=== PATIENT | female | born 1965 | race Caucasian/White ===

== ENCOUNTER → 2016-07-29 | Outpatient (CLI) | payer BC ==
[~2016-07-29] MED LIST: ASPI81TA28 PO; BUPR-79 PO; BUSP-8 PO; BUSP15TA70 PO; ESCI1TAB18 PO; TRAZ1TAB52 PO; TRAZADONE PO
--- NOTE | 2016-07-29 08:42 | DIAGNOSTIC IMAGING REPORT ---
FUSION CT SINUSES W/O HISTORY: J32.9 Chronic sinusitis PLEASE PERFORM FUSION CT SCAN OF THE SINU TECHNIQUE: Multiaxial CT images the sinuses were performed reformatted in the coronal plane without the use of intravenous contrast. Fusion CT sinus protocol was also obtained. COMPARISON STUDY: None. FINDINGS: The frontal sinuses, residual ethmoid air cells, sphenoid sinuses, and mastoid air cells are essentially clear. Mild mucosal thickening within the bilateral maxillary sinuses, right greater than left. No fluid levels within the paranasal sinuses. The nasal septum is essentially midline. The lamina papyracea and orbital floors are intact. No evidence for carotid canal dehiscence. The orbits are unremarkable. Visualized brain parenchyma is within normal limits. Postoperative changes consistent with prior uncinectomies and ethmoidectomies. The cribriform plates and ethmoid roofs are symmetric. IMPRESSION: 1. Mild mucosal thickening within the bilateral maxillary antra. No fluid levels within the paranasal sinuses. 2. Postoperative changes as described above. Electronically signed by: Maicol Zhu M.D. 07/29/2016 8:41 AM Dictated Date/Time: 07/29/2016 8:36 AM
== END | disposition home or self-care (01) ==
LOC: C.CTS 08:18
DX: J32.9 Chronic sinusitis, unspecified (principal)

== ENCOUNTER → 2016-08-03 | Outpatient (CLI) | payer BC ==
--- NOTE | 2016-08-09 10:22 | CODING QUERY MEDICAL NECESSITY ---
SUPPORTING DIAGNOSIS NEEDED A supporting diagnosis is required for the test/procedure performed on this patient in order for us to be reimbursed by the patient's insurance. Please provide a supporting diagnosis for the following test/procedure listed below next to the test name along with your signature. *If there is no additional diagnosis for this patient that would support the following test/procedure please document that below next to the test/procedure. Test(s)/Procedure(s) that require a supporting diagnosis: * VITAMIN D, 25-HYDROXY DIAGNOSIS: Provider Signature: Date: Thank you Marisol Lovell [employer] Once completed, please kindly fax back to [phone] For questions please call [phone]
== END | disposition home or self-care (01) ==
LOC: C.LAB 16:22
PROVIDERS: ATTEND Psychiatry & Neurology Psychiatry
DX: F33.1 Major depressive disorder, recurrent, moderate (principal)

== ENCOUNTER → 2017-03-02 | Outpatient (CLI) | payer BC ==
[~2017-03-02] MED LIST changes: -BUSP-8 PO; -TRAZADONE PO
[2017-03-02 14:24] LABS: BASO % 0.5 %; BASO ABS # 0.03 K/uL (0-0.2); EOS % 3.1 %; EOS ABS # 0.18 K/uL (0-0.5); HEMATOCRIT 40.1 % (37-47); HEMOGLOBIN 13.4 g/dL (12.0-16.0); IG# 0.01 K/uL (0.00-0.02); LYMPH % 37.7 %; LYMPH ABS # 2.18 K/uL (1.2-3.4); MEAN CELL VOLUME 92.4 fL (80-100); MEAN CORPUSCULAR HEMOGLOBIN 30.9 pg (25-34); MEAN CORPUSCULAR HGB CONC 33.4 g/dl (32-36); MEAN PLATELET VOLUME 11.9 fL (7.4-10.4); MONO ABS # 0.46 K/uL (0.11-0.59); NEUT % 50.5 %; NEUT ABS # 2.92 K/uL (1.4-6.5); PLATELET COUNT 182 K/uL (130-400); RED CELL DISTRIBUTION WIDTH CV 13.1 % (11.5-14.5); RED CELL DISTRIBUTION WIDTH SD 44.1 fL (36.4-46.3); WHITE BLOOD COUNT 5.78 K/uL (4.8-10.8)
[2017-03-02 14:42] LABS: ALBUMIN 3.5 gm/dl (3.4-5.0); ALT/SGPT 25 U/L (12-78); BLOOD UREA NITROGEN 12 mg/dl (7-18); CALCIUM 8.6 mg/dl (8.5-10.1); CARBON DIOXIDE 25 mmol/L (21-32); CHOLESTEROL 138 mg/dl (0-200); CREATININE 0.96 mg/dl (0.60-1.20); GLUCOSE 114 mg/dl (70-99); POTASSIUM 3.7 mmol/L (3.5-5.1); SODIUM 142 mmol/L (136-145)
[2017-03-02 14:45] LABS: ALKALINE PHOSPHATASE 90 U/L (45-117); AST/SGOT 14 U/L (15-37); LDL CHOLESTEROL CALCULATED 68 mg/dl; TOTAL PROTEIN 6.6 gm/dl (6.4-8.2)
== END | disposition home or self-care (01) ==
LOC: C.LAB 13:47
PROVIDERS: ATTEND Nurse Practitioner Adult Health
DX: Z00.00 Encounter for general adult medical examination without abnormal findings (principal); I10 Essential (primary) hypertension

== ENCOUNTER 2019-07-18 07:26 | Inpatient (IN) ==
--- NOTE | 2019-07-18 07:35 | Emergency Department Note ---
History of Present Illness General Chief complaint: Abdominal Pain Stated complaint: ABDOMINAL PAIN Time Seen by Provider: 07/18/19 07:32 History of Present Illness Maximum Pain Intensity: 8 53-year-old female who presents to the emergency department with complaint of epigastric pain radiating straight through to the back. The patient reports that her symptoms started around 5:00 this morning while getting ready for work. The patient denied any discomfort last night. The patient reports that the pain is worsened with deep breathing. She denies any significant alleviating factors. She reports that the pain does extend upward slightly into the chest when laying on her back. She denies history of GERD. She denies any overall chest pain or shortness of breath. She denies any pain extending to the lower abdomen. The patient denies any prior history of GI issues. She does have a history of hypertension, but denies history of hypercholesterolemia. The patient reports that her father in his early 50s from an SD. She also reports family history of gallbladder issues. The patient denies any significant NSAIDs, alcohol or caffeine use. The patient rates her discomfort an 8 out of 10. Home Medications Home Medications Medication Instructions Recorded Confirmed Type buspirone 15 mg PO QAM 10/01/18 07/18/19 History escitalopram oxalate [Lexapro] 20 mg PO QAM 10/01/18 07/18/19 History bupropion HCl 150 mg 24 hr tablet, 150 mg PO QAM #90 tab 10/24/18 07/18/19 History extended release aspirin 81 mg tablet,delayed 81 mg PO DAILY #30 tab 06/11/19 07/18/19 Rx release Allergies Allergy/AdvReac Type Severity Reaction Status Date / Time No Known Drug Allergies Allergy Verified 07/18/19 08:09 Past Med/Surg History Medical History Allergic rhinitis Chronic sinusitis (Chronic) Depression Hepatomegaly Hypertension, benign essential, goal below 140/90 (Chronic) Obesity (Chronic) Osteopenia (Chronic) Varicose veins of both lower extremities (Chronic) Surgical History History of right salpingo-oophorectomy cystadenofibroma S/P knee surgery S/P sinus surgery S/P wisdom tooth extraction Family History Father Acute myocardial infarction Myocardial infarction Mother Hypertension FHx: deafness or hearing loss Sister Lung cancer Malignant neoplasm of kidney Unknown Cardiovascular disorder Grandmother Osteoporosis Grandfather Skin cancer Grandmother (Maternal) Breast cancer Denies family history of Colon cancer Ovarian cancer Prostate cancer Social History Visual Impairment: No Limitations Hearing Ability: Normal marital status: Single Current Living Situation: Family Current Living Situation Comment: lives with BF and her daughter and BF current occupational status: employed current occupation: [employer] Feels Safe at Home: Yes Smoking Status: Never smoker Do You Dip or Chew Tobacco: No ; Second Hand Exposure: No ; Hx Alcohol Use: Yes Alcohol Intake Frequency: Weekly Hx Substance Use: No Diet Comment: lactose intolerant, drinks almond milk during the past year weight has: decreased > 10 lbs Dental Care, Regularly: Yes Physical Activity Frequency: Does not Exercise Review of Systems 10 system review was performed and was negative except for pertinent positives and negatives as indicated in history of present illness Physical Exam Vital Signs Vital Signs - 24 hr 07/18/19 07:28 07/18/19 07:44 07/18/19 07:48 Temperature 36.4 C L Temperature Source Oral Pulse Rate 52 L 51 L Pulse Rate from SpO2 Sensor Respiratory Rate 20 16 Respiratory Effort / Characteristics Non-Labored Respiratory Depth Normal Blood Pressure 196/99 H Blood Pressure Mean 131 Pulse Oximetry 99 96 Oxygen Delivery Method Room Air Room Air Sepsis Recent Fever Within 48 Hours No Sepsis Action Taken by Nursing No Action Required 07/18/19 07:50 07/18/19 08:00 07/18/19 08:10 Temperature Temperature Source Pulse Rate 50 L 58 L 53 L Pulse Rate from SpO2 Sensor Respiratory Rate 16 15 13 Respiratory Effort / Characteristics Respiratory Depth Blood Pressure 146/99 H Blood Pressure Mean 114 Pulse Oximetry 100 Oxygen Delivery Method Sepsis Recent Fever Within 48 Hours Sepsis Action Taken by Nursing 07/18/19 08:20 07/18/19 10:14 07/18/19 10:16 Temperature Temperature Source Pulse Rate 53 L 52 L Pulse Rate from SpO2 Sensor Respiratory Rate 14 19 Respiratory Effort / Characteristics Respiratory Depth Blood Pressure 181/99 H 181/99 H Blood Pressure Mean 126 122 Pulse Oximetry 95 Oxygen Delivery Method Room Air Sepsis Recent Fever Within 48 Hours Sepsis Action Taken by Nursing 07/18/19 11:19 07/18/19 11:20 Temperature Temperature Source Pulse Rate Pulse Rate from SpO2 Sensor 54 L 52 L Respiratory Rate Respiratory Effort / Characteristics Respiratory Depth Blood Pressure 146/97 H Blood Pressure Mean 116 Pulse Oximetry 100 100 Oxygen Delivery Method Sepsis Recent Fever Within 48 Hours Sepsis Action Taken by Nursing CONSTITUTIONAL: Healthy and well nourished. Patient appears in moderate discomfort. HEENT: Normocephalic, atraumatic. Pupils equal, round and reactive. No scleral icterus or conjunctival injection/pallor. No tonsillar hypertrophy or posterior pharyngeal erythema. NECK: Full active range of motion without discomfort. No JVD or carotid bruits. LYMPHATICS: No cervical chain adenopathy. RESPIRATORY: Clear to auscultation bilaterally with no wheezing, crackles, rhonchi or stridor. CARDIOVASCULAR: Regular rate and rhythm with no murmurs, rubs or gallops. GASTROINTESTINAL: Bowel sounds present in all quadrants. Patient has notable epigastric and right upper quadrant tenderness to palpation with positive Whittaker sign. Negative CVA tenderness. No additional abdominal rigidity, guarding or rebound. MUSCULOSKELETAL: Full range of motion of all joints without discomfort. INTEGUMENTARY: No rash or other significant dermatologic conditions noted. HEMATOLOGIC: No ecchymosis or petechiae. PSYCHIATRIC: Positive affect. NEUROLOGIC: No focal neurologic deficits noted. Course Course Patient history and physical exam were performed. Nurse's notes were reviewed. Vital signs were reviewed, showing an elevated blood pressure of 196/99. The patient is mildly bradycardic at 52 bpm. She is afebrile with good O2 saturation on room air. IV access was established, and labs were drawn. The patient was hydrated with a liter normal saline, and administered IV morphine and Zofran. She was also administered a GI cocktail. This did not provide any significant relief. The patient was placed on a cardiac care unit nurse, and a 12-lead ECG shows a sinus bradycardia without any other concerning findings. Troponin and d-dimer were normal, and the patient had no other significant lab findings. CMP and lipase were normal. An abdomen obstruction series with a PA chest view was normal. Limited ultrasound of the abdomen shows evidence for a mobile gallstone with common bile duct dilatation at 9 mm. No gallbladder wall thickening or pericholecystic fluid is appreciated. I also reviewed cardiac monitoring data, showing no evidence for arrhythmias while in the emergency department. Findings were discussed with Dr. Delgado, ED attending physician, who recommended consulting general surgery to discuss treatment options. Case was discussed with Armando Blackwood PA-C, who also discussed the case with Dr. Mesa. They recommended laparoscopic cholecystectomy. The patient reported that she would rather think about it. Dr. Mesa return to the OR allow the patient time to consider her options. Prior to their second review, the patient reported worsening pain. I did place an order for additional IV morphine. Dr. Mesa did reevaluate the patient, and the patient elected observation at this time. Dr. Mesa indicated that he would order an MRCP at this point. Please see his dictation for further treatment and final disposition. The patient reported good pain control at the time of transfer of care, rating her discomfort a 2 out of 10. Administered Medications Morphine Sulfate (Morphine Sulfate) 4 mg IV Q30M PRN PRN Reason: Pain Stop: 08/01/19 11:40 Last Admin: 07/18/19 13:32 Dose: 4 mg Documented by: [id number] Discontinued Medications Al Hydrox/Mg Hydrox/Simethicone () Confirm Administered Dose 1 dose PO .STK-MED ONE Stop: 07/18/19 08:01 Last Admin: 07/18/19 08:03 Dose: 1 dose Documented by: [id number] Al Hydrox/Mg Hydrox/Simethicone 18 ml/ Lidocaine HCl 6 ml/ BARCODE IDENTIFIER 1 ea 0 ml PO ONE ONE Stop: 07/18/19 07:45 Last Admin: 07/18/19 08:04 Dose: Not Given Documented by: [id number] Sodium Chloride (Nss 1000ml) 1,000 mls @ 999 mls/hr IV .Q1H1M ONE Stop: 07/18/19 08:44 Last Infusion: 07/18/19 09:27 Dose: 0 mls/hr Documented by: [id number] Admin: 07/18/19 08:03 Dose: 999 mls/hr Documented by: [id number] Cefoxitin Sodium (Mefoxin) 2,000 mg in 60 mls @ 100 mls/hr IV NOW STA Stop: 07/18/19 13:55 Last Admin: 07/18/19 13:28 Dose: 100 mls/hr Documented by: [id number] Morphine Sulfate (Morphine Sulfate) 4 mg IV NOW STA Stop: 07/18/19 07:45 Last Admin: 07/18/19 08:04 Dose: 4 mg Documented by: [id number] Ondansetron HCl (Zofran) 4 mg IV NOW STA Stop: 07/18/19 07:45 Last Admin: 07/18/19 08:03 Dose: 4 mg Documented by: [id number] Medical Decision Making Medical Records Attestation: I reviewed the patient's medical records. Home Medications Current Medication List: was personally reviewed by me Laboratory Data Attestation: I reviewed the patient's lab results. Result diagrams: 07/18/19 07:50 07/18/19 07:50 Lab Results 07/18/19 07/18/19 07/18/19 Range/Units 07:50 07:50 07:50 WBC 5.81 (4.8-10.8) K/uL RBC 4.72 (4.2-5.4) M/uL Hgb 14.4 (12.0-16.0) g/dL Hct 44.0 (37-47) % MCV 93.2 (80-100) fL MCH 30.5 (25-34) pg MCHC 32.7 (32-36) g/dL RDW Std Deviation 45.8 (36.4-46.3) fL RDW Coeff of Sandi 13.3 (11.5-14.5) % Plt Count 192 (130-400) K/uL MPV 12.3 H (7.4-10.4) fL Immature Gran % (Auto) 0.2 % Neut % (Auto) 55.2 % Lymph % (Auto) 31.5 % [place] % (Auto) 10.0 % Eos % (Auto) 2.8 % Baso % (Auto) 0.3 % Immature Gran # (Auto) 0.01 (0.00-0.02) K/uL Neut # (Auto) 3.21 (1.4-6.5) K/uL Lymph # (Auto) 1.83 (1.2-3.4) K/uL [place] # (Auto) 0.58 (0.11-0.59) K/uL Eos # (Auto) 0.16 (0-0.5) K/uL Baso # (Auto) 0.02 (0-0.2) K/uL D-Dimer 500 (0-500) ug/L FEU Sodium 142 (136-145) mmol/L Potassium 3.9 (3.5-5.1) mmol/L Chloride 111 H (98-107) mmol/L Carbon Dioxide 27 (21-32) mmol/L Anion Gap 4.0 (3-11) BUN 14 (7-18) mg/dl Creatinine 0.96 (0.6-1.2) mg/dl Est Cr Clr Drug Dosing 79.4 ml/min Est GFR ( Amer) 77.2 Est GFR (Non-Af Amer) 66.6 BUN/Creatinine Ratio 14.8 (10-20) Glucose 92 (70-99) mg/dl Calcium 9.0 (8.5-10.1) mg/dl Total Bilirubin 0.5 (0.2-1) mg/dl AST 19 (15-37) U/L ALT 32 (12-78) U/L Alkaline Phosphatase 109 (45-117) U/L Troponin I < 0.015 (0-0.045) ng/ml Total Protein 6.9 (6.4-8.2) gm/dl Albumin 3.6 (3.4-5.0) gm/dl Globulin 3.3 (2.5-4.0) gm/dl Albumin/Globulin Ratio 1.1 (0.9-2) Lipase 207 (73-393) U/L Imaging Data Attestation: I personally reviewed and interpreted this imaging study as follows: My Impression: My interpretation of an abdomen obstruction series with a PA chest view does not show any obstructive pattern, abdominal free air, basilar lung consolidations, pneumothorax or cardiac prominence. Limited abdominal ultrasound shows evidence for a gallstone in, but bile duct dilatation. No gallbladder wall thickening or pericholecystic fluid is noted. Radiologist's Impression: CHEST AND ABDOMEN 2 VIEWS HISTORY: Epigastric pain COMPARISON: Chest 02/21/2015. FINDINGS: The lungs are clear. Cardiac silhouette is top normal in size. Mildly tortuous thoracic aorta. Old, healed left-sided rib fractures. No pneumoperitoneum. No pneumatosis. No dilated loops of bowel to suggest an obstruction. No renal or ureteral calculi. Small to moderate amount of well- formed stool within the colon. Punctate calcifications in the deep pelvis are nonspecific but favor phleboliths. IMPRESSION: No acute cardiopulmonary process. No evidence for bowel obstruction. ABDOMINAL ULTRASOUND, RIGHT UPPER QUADRANT HISTORY: Epigastric pain. COMPARISON: Abdomen and pelvis CT 02/21/2015. FINDINGS: Pancreas: The pancreas demonstrates a normal echotexture. Liver: Unremarkable. Gallbladder: No gallbladder wall thickening. There is a 1.2 cm mobile stone. The technologist reported positive sonographic Whittaker sign. CBD: Distended up to 9 mm. Right kidney: No hydronephrosis. Small parapelvic cysts within the upper pole. This measures 1.5 cm. IMPRESSION: 1. Equivocal findings for acute cholecystitis. There is no gallbladder wall thickening. However, there is a gallstone and a positive sonographic Whittaker sign. Consider follow-up nuclear medicine HIDA scan to exclude the possibility of developing acute cholecystitis. 2. Distended common bile duct at 9 mm. ECG Data Indication: + abdominal pain Rate (beats per minute): 51 Rhythm: + sinus bradycardia ECG Intervals/blocks: + Normal QRS, + Normal QT and + Normal CA ECG Irons: + Normal ECG ST segments: + Normal ST segments Blood Pressure Blood Pressure Findings: Elevated blood pressure MDM Narrative Cardiac monitoring: An order was placed for continuous cardiac monitoring. The monitor shows a rate of 51 bpm with a sinus bradycardic rhythm. conveyor monitor history was reviewed throughout the evaluation, and no dysrhythmias were noted. Patient presents to the emergency department with complaint of epigastric and right upper quadrant pain. Findings today are most consistent with biliary colic from a gallstone. Patient does also have a common bile duct dilatation, with choledocholithiasis also considered. Ultrasound and laboratory studies are not suggestive of acute cholecystitis at this time. Lab work also was not consistent with pancreatitis or hepatitis. The patient was unable to provide a urine sample to rule out UTI, although this is felt less likely. Examination is not consistent with appendicitis, pyelonephritis or diverticulitis. I do not suspect cardiopulmonary referred pain. Troponin and d-dimer are normal, therefore I do not suspect acute cardiac event or pulmonary embolus. Impression & Plan Biliary colic, Gallstone, Right upper quadrant abdominal pain Discharge Plan Visit Data *Final* Discharge Date/Time: 07/18/19 13:58 Chief Complaint: Abdominal Pain Stated Complaint: ABDOMINAL PAIN ED Provider: Vaughn Delgado ED Midlevel Provider: Poli Temple Discharge Problem: Biliary colic, Gallstone, Right upper quadrant abdominal pain Patient Disposition: Admitted As Inpatient Discharge Instructions Interventions: ED Discharge Assessment Last Done: 07/18/19 13:58 Discharge Problem: Gallstone Qualifiers: Cholecystitis presence: without cholecystitis Biliary obstruction: without biliary obstruction Qualified Code(s): K80.20 - Calculus of gallbladder without cholecystitis without obstruction
[2019-07-18] MEDS ORDERED: ONDANSETRON INJ 2 MG/ML 2 ML VIAL IV STA (07:44)
[2019-07-18] MEDS ORDERED: ALUMINUM/MAGNESIUM SUSP 18 ML, LIDOCAINE HCL VISCOUS 2% 6 ML, BARCODE IDENTIFIER 1 EA PO ONE (07:44)
[2019-07-18] MEDS ORDERED: MoRPHine SULFATE 4 MG/ML 1 ML CARP\\VIAL IV STA (07:44)
[2019-07-18] MEDS ORDERED: SODIUM CHLORIDE 0.9% 1000ML 1,000 ML IV ONE (07:44)
[2019-07-18] MEDS ORDERED: GI COCKTAIL ED USE PO ONE (08:00)
[2019-07-18 08:09] LABS: Basophils # (auto) 0.02 K/uL (0-0.2); Basophils % (auto) 0.3 %; Eosinophils # (auto) 0.16 K/uL (0-0.5); Eosinophils % (auto) 2.8 %; Hemoglobin 14.4 g/dL (12.0-16.0); Immature Granulocytes # (auto) 0.01 K/uL (0.00-0.02); Immature Granulocytes % (auto) 0.2 %; Lymphocytes # (auto) 1.83 K/uL (1.2-3.4); Lymphocytes % (auto) 31.5 %; Mean Corpuscular Hemoglobin 30.5 pg (25-34); Mean Corpuscular Hgb Conc 32.7 g/dL (32-36); Mean Corpuscular Volume 93.2 fL (80-100); Mean Platelet Volume 12.3 fL (7.4-10.4); Monocytes # (auto) 0.58 K/uL (0.11-0.59); Neutrophils # (auto) 3.21 K/uL (1.4-6.5); Neutrophils % (auto) 55.2 %; Platelet Count 192 K/uL (130-400); RDW Coefficient of Variation 13.3 % (11.5-14.5); RDW Standard Deviation 45.8 fL (36.4-46.3); Red Blood Count 4.72 M/uL (4.2-5.4); White Blood Count 5.81 K/uL (4.8-10.8)
[2019-07-18 08:18] LABS: D Dimer 500 ug/L FEU (0-500)
[2019-07-18 08:26] LABS: Alanine Aminotransferase 32 U/L (12-78); Albumin Level 3.6 gm/dl (3.4-5.0); Aspartate Aminotransferase 19 U/L (15-37); BUN Creatinine Ratio 14.8 (10-20); Blood Urea Nitrogen 14 mg/dl (7-18); Carbon Dioxide 27 mmol/L (21-32); Chloride 111 mmol/L (98-107); Creatinine Clr Calc Pharmacy 79.4 ml/min; Est GFR (African American) 77.2; Est GFR (Non-African American) 66.6; Glucose 92 mg/dl (70-99); Lipase 207 U/L (73-393); Potassium 3.9 mmol/L (3.5-5.1); Sodium 142 mmol/L (136-145)
[2019-07-18 08:31] LABS: Albumin Globulin Ratio 1.1 (0.9-2); Alkaline Phosphatase 109 U/L (45-117); Bilirubin,Total 0.5 mg/dl (0.2-1); Globulin 3.3 gm/dl (2.5-4.0); Total Protein 6.9 gm/dl (6.4-8.2); Troponin I < 0.015 ng/ml (0-0.045)
--- NOTE | 2019-07-18 08:47 | XRay Report ---
CHEST AND ABDOMEN 2 VIEWS HISTORY: Epigastric pain COMPARISON: Chest 02/21/2015. FINDINGS: The lungs are clear. Cardiac silhouette is top normal in size. Mildly tortuous thoracic aor ta. Old, healed left-sided rib fractures. No pneumoperitoneum. No pneumatosis. No dilated loops of cecilia wel to suggest an obstruction. No renal or ureteral calculi. Small to moderate amount of well-formed stool within the colon. Punctate calcifications in the deep pelvis are nonspecific but favor phleboli ths. IMPRESSION: No acute cardiopulmonary process. No evidence for bowel obstruction. ACT 112: Negative or not required by law. Electronically signed by: Maicol Zhu M.D. 07/18/2019 8:46 AM
--- NOTE | 2019-07-18 09:27 | Ultrasound Report ---
ABDOMINAL ULTRASOUND, RIGHT UPPER QUADRANT HISTORY: Epigastric pain. COMPARISON: Abdomen and pelvis CT 02/21/2015. FINDINGS: Pancreas: The pancreas demonstrates a normal echotexture. Liver: Unremarkable. Gallbladder: No gallbladder wall thickening. There is a 1.2 cm mobile stone. The technologist reporte d positive sonographic Whittaker sign. CBD: Distended up to 9 mm. Right kidney: No hydronephrosis. Small parapelvic cysts within the upper pole. This measures 1.5 cm. IMPRESSION: 1. Equivocal findings for acute cholecystitis. There is no gallbladder wall thickening. However, ther e is a gallstone and a positive sonographic Whittaker sign. Consider follow-up nuclear medicine HIDA sca n to exclude the possibility of developing acute cholecystitis. 2. Distended common bile duct at 9 mm. ACT 112: Negative or not required by law. Electronically signed by: Maicol Zhu M.D. 07/18/2019 9:25 AM
--- NOTE | 2019-07-18 10:30 | Surgery Consultation ---
Date of Consultation July 18, 2019 Assessment & Plan (1) Cholelithiasis: No evidence of acute cholecystitis. May have symptomatic cholelithiasis. Her symptoms improved with medication. We will observe for a short time in the ED and decide for discharge with close follow-up versus admission. Dr. Mesa-Rc saw the patient in the emergency room-she has a dilated gallbladder with a stone and a mildly dilated common bile duct I discussed with her laparoscopic cholecystectomy with cholangiogram but she is reluctant to undergo surgery as her mother and grandmother had loose bowel movements postoperatively from the same operation Her pain is returning and I told her she cannot go home-she will be admitted and MRCP ordered We will ask the medical team to see her as she does have hypertension and also the GI team I suspect at some point she will undergo laparoscopic cholecystectomy History of Present Illness History of Present Illness 53 y/o female with epigastric pain, nausea sudden onset this morning. Pain was increasing while getting ready for work and she came to ED. Some improvement after morphine and zofran. No previous abdominal pain or fatty food intolerance. Allergies Allergy/AdvReac Type Severity Reaction Status Date / Time No Known Drug Allergies Allergy Verified 07/18/19 08:09 Home Medications Home Medications Medication Instructions Recorded Confirmed Type buspirone 15 mg PO QAM 10/01/18 07/18/19 History escitalopram oxalate [Lexapro] 20 mg PO QAM 10/01/18 07/18/19 History bupropion HCl 150 mg 24 hr tablet, 150 mg PO QAM #90 tab 10/24/18 07/18/19 History extended release aspirin 81 mg tablet,delayed 81 mg PO DAILY #30 tab 06/11/19 07/18/19 Rx release Patient History Medical History Allergic rhinitis Chronic sinusitis (Chronic) Depression Hypertension, benign essential, goal below 140/90 (Chronic) Obesity (Chronic) Osteopenia (Chronic) Varicose veins of both lower extremities (Chronic) Surgical History History of right salpingo-oophorectomy cystadenofibroma S/P knee surgery S/P sinus surgery S/P wisdom tooth extraction Family History Father Acute myocardial infarction Myocardial infarction Mother Hypertension FHx: deafness or hearing loss Sister Lung cancer Malignant neoplasm of kidney Unknown Cardiovascular disorder Grandmother Osteoporosis Grandfather Skin cancer Grandmother (Maternal) Breast cancer Denies family history of Colon cancer Ovarian cancer Prostate cancer Social History Visual Impairment: No Limitations Hearing Ability: Normal marital status: Single Current Living Situation: Family Current Living Situation Comment: lives with BF and her daughter and BF current occupational status: employed current occupation: [employer] Feels Safe at Home: Yes Smoking Status: Never smoker Second Hand Exposure: No ; Hx Alcohol Use: Yes Alcohol Intake Frequency: Weekly Hx Substance Use: No Diet Comment: lactose intolerant, drinks almond milk during the past year weight has: decreased > 10 lbs Dental Care, Regularly: Yes Physical Activity Frequency: Does not Exercise Review of Systems Constitutional: no fever and no chills Gastrointestinal: + abdominal pain and + nausea Physical Exam Constitutional: WD/WN, vitals as above Respiratory: normal respiratory effort, lungs clear to auscultation Cardiovascular: RRR, no murmur, no edema Gastrointestinal (Abdomen): Inspection/Auscultation: abdomen not distended Percussion/Palpation: + abdomen tender (epigastric) and abdomen soft Results & Data Vital Signs (Past 12 Hours) Vital Signs Temp Pulse Resp BP Pulse Ox 07/18/19 10:14 52 L 19 181/99 H 95 07/18/19 07:44 96 07/18/19 07:28 36.4 C L 52 L 20 196/99 H 99 PG Care Time/CCT Total # of Minutes Spent Total Time Spent with Patient: Total time spent is greater than 50% in coordination of care (as documented) at patient's floor/unit and/or counseling patient: Coding Level of Care Code 52029 Office/OBS Consult Lvl 3 Diagnoses Cholelithiasis K80.20
[2019-07-18] MEDS ORDERED: MoRPHine SULFATE 4 MG/ML 1 ML CARP\\VIAL IV PRN ×2 (11:41→17:37)
--- NOTE | 2019-07-18 11:47 | Hospitalist Consultation ---
Date of Consultation July 18, 2019 Assessment & Plan (1) Acute calculous cholecystitis: This patient is a 53-year-old female with history of obesity, chronic sinusitis and rhinitis,, borderline hypertension, and depression, who presents to the ER with acute calculus cholecystitis. Blood pressures are likely elevated secondary to pain in the setting of borderline hypertension previously. LFTs are normal but may be due to early course of illness. -Admitted to the general surgery service -Plans to go to the OR today for cholecystectomy-we will keep n.p.o., received 1 L of IV fluids -She will continue on IV maintenance fluids with LR at 100 mL's per hour --Start IV Mefoxin 2 g x 1 now as per surgery recommendation -Pain control with morphine, IV Zofran as needed for nausea This patient is easily able to achieve at least 4 METS by going up and down a flight of stairs without any chest pain or shortness of breath. She has a normal ECG and no renal disease or any other concerning cardiopulmonary history. She is at average cardiovascular perioperative risk to undergo this interm iate risk procedure and should proceed with the surgery if she chooses. (2) Biliary colic: As above (3) Hypertension, benign essential, goal below 140/90: Blood pressure elevated here likely secondary to pain into the 180s over 90s systolic, however has improved with IV morphine down to the 140s over 90s Patient reports she frequently is in the 140s over 90s when she checks her blood pressure at work. She does have trace pitting edema lower extremities and history of varicose veins She is completely asymptomatic from her blood pressure at this time-no headache or chest pain or neurological deficits, no shortness of breath -Could benefit from starting chlorthalidone or HCTZ 25 mg once daily after she r ecovers from her surgery -In the meantime, would add hydralazine 10 mg IV every 8 hours as needed systolic blood pressure greater than 180 -We will follow blood pressures (4) Chronic sinusitis: Chronic issue, follows with hvac specialist No current acute issues (5) Obesity: BMI 35.9 She is working on changing her diet and weight loss (6) Osteopenia: Noted in the chart Not on calcium or vitamin D that I can see -Follow-up with PCP (7) Depression: Stable -Continue home bupropion, buspirone, and Lexapro once able to take p.o. (8) Allergic rhinitis: As above, not currently on any medications for this (9) Hepatomegaly: Noted hepatomegaly on MRCP Could be due to fatty liver -Follow-up with PCP as an outpatient Recommended weight loss (10) DVT prophylaxis: SCDs and would recommend Lovenox SQ postoperatively at surgeon's discretion Disposition-hospitalist service will follow along with this consultation History of Present Illness Reason for Consultation: Biliary colic, elevated BP Requesting Physician: Dr. Jonathan Mesa Attending Physician: Dr. Jonathan Mesa History of Present Illness This pt is a 53 yo female with a h/o depression/anxiety, allergic rhinitis and chronic sinusitis, osteopenia, and HTN who presents to the ER with with epigastric pain radiating to the right shoulder, nausea sudden onset this morning. Pain was increasing while getting ready for work and she came to ED. Some improvement after morphine and zofran, but the pain has since returned when I saw her. No previous abdominal pain or fatty food intolerance, but her mother and her aunt have had gallbladder issues. She recently did the "whole 30 challenge" which included no processed sugars or grains or dairy for the last 30 days. She denies any fevers. No chest pains or shortness of breath. She normally can go up and down a flight of stairs without any difficulty and is fairly active. No previous history of cardiac or pulmonary issues. She is a non-smoker. AAS showed moderate stool in the colon but no obstruction. Abd US showed cholelithiasis, distended GB, CBD dilated at 9mm, but equivocal for cholecystitis. She was admitted to the surgical service for further workup with MRCP and possible cholecystectomy with intraoperative cholangiogram. MRCP came back as I was seeing her which showed evidence concerning for acute cholecystitis, stone in the gallbladder neck and a stone possibly in the cystic duct, but no choledocholithiasis. The patient is now agreeable to having a cholecystectomy Hospitalist service consulted for elevated BPs and medical management. Allergies Allergy/AdvReac Type Severity Reaction Status Date / Time No Known Drug Allergies Allergy Verified 07/18/19 08:09 Home Medications Home Medications Medication Instructions Recorded Confirmed Type buspirone 15 mg PO QAM 10/01/18 07/18/19 History escitalopram oxalate [Lexapro] 20 mg PO QAM 10/01/18 07/18/19 History bupropion HCl 150 mg 24 hr tablet, 150 mg PO QAM #90 tab 10/24/18 07/18/19 History extended release aspirin 81 mg tablet,delayed 81 mg PO DAILY #30 tab 06/11/19 07/18/19 Rx release Patient History Medical History Allergic rhinitis Chronic sinusitis (Chronic) Depression Hypertension, benign essential, goal below 140/90 (Chronic) Obesity (Chronic) Osteopenia (Chronic) Varicose veins of both lower extremities (Chronic) Surgical History History of right salpingo-oophorectomy cystadenofibroma S/P knee surgery S/P sinus surgery S/P wisdom tooth extraction Family History Father Acute myocardial infarction Myocardial infarction Mother Hypertension FHx: deafness or hearing loss Sister Lung cancer Malignant neoplasm of kidney Unknown Cardiovascular disorder Grandmother Osteoporosis Grandfather Skin cancer Grandmother (Maternal) Breast cancer Denies family history of Colon cancer Ovarian cancer Prostate cancer Social History Visual Impairment: No Limitations Hearing Ability: Normal marital status: Single Current Living Situation: Family Current Living Situation Comment: lives with BF and her daughter and BF current occupational status: employed current occupation: [employer] Officer - [employer] Feels Safe at Home: Yes Smoking Status: Never smoker Second Hand Exposure: No ; Hx Alcohol Use: Yes Alcohol Intake Frequency: Weekly Hx Substance Use: No Diet Comment: lactose intolerant, drinks almond milk during the past year weight has: decreased > 10 lbs Dental Care, Regularly: Yes Physical Activity Frequency: Does not Exercise Review of Systems Review of Systems: All systems reviewed & are unremarkable except as noted in HPI & below Physical Exam Constitutional: WD/WN, vitals as above + obese Eyes: PERRL, conjunctivae normal, anicteric sclerae ENMT: external ear and nose normal, oropharynx normal Neck: trachea midline, no thyromegaly Respiratory: normal respiratory effort, lungs clear to auscultation Cardiovascular: RRR, no murmur, no edema Chest (Breasts): Chest: normal inspection of chest Gastrointestinal (Abdomen): Inspection/Auscultation: abdomen normal to inspection and normal bowel sounds; abdomen not distended Percussion/Palpation: + abdomen tender (In the epigastric and right upper mary drant region without guarding or rebound) and abdomen soft; no guarding and abdomen not rigid Musculoskeletal: Extremities: extremities normal to inspection; no cyanosis and no clubbing Skin: no rashes, warm and dry Neurologic: moves all extremities and awake; no focal motor deficits Psychiatric: A+Ox3, euthymic affect Lymphatic: no lymphedema Results & Data Results & Data ([facility]) Vital Signs (Past 12 Hours) Vital Signs Temp Pulse Resp BP Pulse Ox 07/18/19 10:16 181/99 H 07/18/19 10:14 52 L 19 181/99 H 95 07/18/19 08:20 53 L 14 07/18/19 08:10 53 L 13 146/99 H 100 07/18/19 08:00 58 L 15 07/18/19 07:50 50 L 16 07/18/19 07:48 51 L 16 07/18/19 07:44 96 07/18/19 07:28 36.4 C L 52 L 20 196/99 H 99 Laboratory Results 07/18/19 07/18/19 07/18/19 Range/Units 07:50 07:50 07:50 WBC 5.81 (4.8-10.8) K/uL RBC 4.72 (4.2-5.4) M/uL Hgb 14.4 (12.0-16.0) g/dL Hct 44.0 (37-47) % MCV 93.2 (80-100) fL MCH 30.5 (25-34) pg MCHC 32.7 (32-36) g/dL RDW Std Deviation 45.8 (36.4-46.3) fL RDW Coeff of Sandi 13.3 (11.5-14.5) % Plt Count 192 (130-400) K/uL MPV 12.3 H (7.4-10.4) fL Immature Gran % (Auto) 0.2 % Neut % (Auto) 55.2 % Lymph % (Auto) 31.5 % [place] % (Auto) 10.0 % Eos % (Auto) 2.8 % Baso % (Auto) 0.3 % Immature Gran # (Auto) 0.01 (0.00-0.02) K/uL Neut # (Auto) 3.21 (1.4-6.5) K/uL Lymph # (Auto) 1.83 (1.2-3.4) K/uL [place] # (Auto) 0.58 (0.11-0.59) K/uL Eos # (Auto) 0.16 (0-0.5) K/uL Baso # (Auto) 0.02 (0-0.2) K/uL D-Dimer 500 (0-500) ug/L FEU Sodium 142 (136-145) mmol/L Potassium 3.9 (3.5-5.1) mmol/L Chloride 111 H (98-107) mmol/L Carbon Dioxide 27 (21-32) mmol/L Anion Gap 4.0 (3-11) BUN 14 (7-18) mg/dl Creatinine 0.96 (0.6-1.2) mg/dl Est Cr Clr Drug Dosing 79.4 ml/min Est GFR ( Amer) 77.2 Est GFR (Non-Af Amer) 66.6 BUN/Creatinine Ratio 14.8 (10-20) Glucose 92 (70-99) mg/dl Calcium 9.0 (8.5-10.1) mg/dl Total Bilirubin 0.5 (0.2-1) mg/dl AST 19 (15-37) U/L ALT 32 (12-78) U/L Alkaline Phosphatase 109 (45-117) U/L Troponin I < 0.015 (0-0.045) ng/ml Total Protein 6.9 (6.4-8.2) gm/dl Albumin 3.6 (3.4-5.0) gm/dl Globulin 3.3 (2.5-4.0) gm/dl Albumin/Globulin Ratio 1.1 (0.9-2) Lipase 207 (73-393) U/L Diagnostic Findings Abdominal ultrasound, acute abdominal series, and MRCP all reviewed and as per HPI ECG Additional Comments: ECG with sinus bradycardia, no ischemic changes PG Care Time/CCT Total # of Minutes Spent Total Time Spent with Patient: Total time spent is greater than 50% in coordination of care (as documented) at patient's floor/unit and/or counseling patient: Coding Level of Care Code 63180 Inpt Consult Level 3 Diagnoses Acute calculous cholecystitis K80.00 Biliary colic K80.50 Hypertension, benign essential, goal below 140/90 I10 Chronic sinusitis J32.9 Obesity E66.9 Osteopenia M85.80 Depression F32.9 Allergic rhinitis J30.9 Hepatomegaly R16.0 DVT prophylaxis Z29.9
[2019-07-18] MEDS ORDERED: HydrALAZINE HCL 20 MG/ML VIAL IV PRN (11:59)
--- NOTE | 2019-07-18 13:14 | Magnetic Resonance Report ---
MRCP CLINICAL HISTORY: Nausea. Cholelithiasis. Right upper quadrant abdominal pain. Comparison study: Abdominal ultrasound dated 07/18/2019. Abdominal CT dated 02/21/2015. TECHNIQUE: Abdominal MRCP is performed utilizing various T2-weighted sequences in the axial and coron al planes. 3-D reformats are created and assessed. IV contrast was not administered for this examinat ion. FINDINGS: The gallbladder is distended, with a gallstone identified in the region of the gallbladder neck. Ques tion a small obstructing stone in the cystic duct seen on image #135 of the high-resolution axial ser ies. The gallbladder wall appears mildly thickened and edematous, and there is trace pericholecystic stranding and fluid. Findings are highly concerning for acute cholecystitis. There is no intrahepatic biliary ductal dilatation. There is prominence of the common bile duct which measures up to 7 mm in diameter. There are no intraluminal filling defects to indicate choledocholithiasis. The pancreatic d uct is normal in caliber. The unenhanced liver is enlarged measuring 19.7 cm in length. The unenhanced spleen, pancreas, adrena l glands, and kidneys are grossly unremarkable. There is no bowel obstruction. There is no abdominal ascites. The abdominal aorta is normal in caliber. No pleural effusion is identified. The heart is top normal in size and without pericardial effusion. The visualized bony structures demonstrate normal marrow signal intensity. IMPRESSION: 1. Cholelithiasis with evidence of acute cholecystitis. 2. Suspect a small obstructing calculus within the cystic duct. 3. There is no intrahepatic biliary ductal dilatation. No stones are seen within the common bile duct . 4. Hepatomegaly. 5. Additional findings as above. Electronically signed by: Adrian Marrufo M.D. 07/18/2019 1:13 PM
[2019-07-18] MEDS ORDERED: cefOXitin 2,000 MG/60 ML BAG IV STA (13:20)
[2019-07-18 13:53] LABS: Appearance Urine Clear (Clear); Bacteria Urine Automated Negative (Negative); Bilirubin Urine Negative (Negative); Blood Urine Trace (Negative); Cast Urine Automated 0 /lpf (0-5); Color Urine Yellow; Epithelial Cell Urine Auto 0-5 /lpf (0-5); Glucose Urine UA Negative (Negative); Ketones Urine Negative (Negative); Leukocyte Esterase Urine Negative (Negative); Nitrite Urine Negative (Negative); Protein Urine Negative (Negative); RBC Urine Automated 0-4 /hpf (0-4); Specific Gravity Urine 1.011 (1.000-1.030); Urobilinogen Urine Negative (Negative); WBC Urine Automated 0 /hpf (0-5); pH Urine 8.5 (4.5-7.5)
[2019-07-18 13:59] LABS: Pregnancy Test, Urine Negative (Negative)
[2019-07-18] MEDS ORDERED: ONDANSETRON INJ 2 MG/ML 2 ML VIAL IV PRN ×2 (14:20→17:37)
[2019-07-18] MEDS ORDERED: ePHEDrine sulfate 50 MG/ML AMP IV PRN (14:20)
[2019-07-18] MEDS ORDERED: HYDROmorphone INJ 1 MG/ML SYRINGE IV PRN (14:20)
[2019-07-18] MEDS ORDERED: ATROPINE SULFATE 0.1 MG/ML 10ML SYR IV PRN (14:20)
[2019-07-18] MEDS ORDERED: fentaNYL citrate 100 MCG/2 ML VIAL IV PRN (14:20)
--- NOTE | 2019-07-18 14:23 | Anesthesiology Consultation ---
Date of Service July 18, 2019 Assessment & Plan (1) Encounter for pre-operative examination: Chart Review Chart Review: Acceptable Risk for Surgery and Patient NOT seen in Pre Admission Testing Consults Requested none History Surgery Operation Date: 07/18/19 10:10 Proposed Procedures p Laparoscopic Cholecystectomy with Cholangiogram - Jonathan Mesa MD, FACS Height/Weight Height: 5 ft 6 in Weight: 100.9 kg Allergies Allergy/AdvReac Type Severity Reaction Status Date / Time No Known Drug Allergies Allergy Verified 07/18/19 08:09 Medications Home Medications Medication Instructions Recorded Confirmed Last Taken buspirone 15 mg PO QAM 10/01/18 07/18/19 07/17/19 escitalopram oxalate [Lexapro] 20 mg PO QAM 10/01/18 07/18/19 07/17/19 bupropion HCl 150 mg 24 hr tablet, 150 mg PO QAM #90 tab 10/24/18 07/18/19 07/17/19 extended release aspirin 81 mg tablet,delayed 81 mg PO DAILY #30 tab 06/11/19 07/18/19 07/17/19 release Active Medications Generic Name Dose Route Start Last Admin Trade Name Freq PRN Reason Stop Dose Admin Morphine Sulfate 4 mg 07/18/19 11:41 07/18/19 13:32 Morphine Sulfate IV 08/01/19 11:40 4 mg Q30M PRN Administration Pain NPO Date Last Intake of Fluids: 07/18/19 Time Last Intake of Fluids: 06:00 Date Last Intake of Solids: 07/18/19 Time Last Intake of Solids: 06:00 Past Medical History Medical History Allergic rhinitis Chronic sinusitis (Chronic) Depression Hepatomegaly Hypertension, benign essential, goal below 140/90 (Chronic) Obesity (Chronic) Osteopenia (Chronic) Varicose veins of both lower extremities (Chronic) Exercise / Class Metabolic Activity III < 4 Walking/Shop/Light housework Past Family History Family History Father Acute myocardial infarction Myocardial infarction Mother Hypertension FHx: deafness or hearing loss Sister Lung cancer Malignant neoplasm of kidney Unknown Cardiovascular disorder Grandmother Osteoporosis Grandfather Skin cancer Grandmother (Maternal) Breast cancer Denies family history of Colon cancer Ovarian cancer Prostate cancer Past Surgical History Surgical History History of right salpingo-oophorectomy cystadenofibroma S/P knee surgery S/P sinus surgery S/P wisdom tooth extraction Past Anesthesia History No Hx of Anesthesia Complications and No Family Hx of Anesthesia Complications History of PONV No Hx of PONV and No Hx of Motion Sickness Social History Smoking Status: Never smoker Do You Dip or Chew Tobacco: No Hx Alcohol Use: Yes Hx Substance Use: No Physical Exam Vital Signs Last Vital Signs Temp 36.6 C 07/18/19 14:17 Pulse 53 L 07/18/19 14:17 Resp 16 07/18/19 14:17 BP 138/94 07/18/19 14:17 Pulse Ox 97 07/18/19 14:17 Testing Laboratory Results 07/18/19 07:50 07/18/19 07:50 Urine Color Yellow 07/18/19 13:30 Urine Appearance Clear (Clear) 07/18/19 13:30 Urine pH 8.5 (4.5-7.5) H 07/18/19 13:30 Ur Specific [place] 1.011 (1.000-1.030) 07/18/19 13:30 Urine Protein Negative (Negative) 07/18/19 13:30 Urine Glucose (UA) Negative (Negative) 07/18/19 13:30 Urine Ketones Negative (Negative) 07/18/19 13:30 Urine Nitrite Negative (Negative) 07/18/19 13:30 Ur Leukocyte Esterase Negative (Negative) 07/18/19 13:30 Urine WBC (Auto) 0 /hpf (0-5) 07/18/19 13:30 Urine RBC (Auto) 0-4 /hpf (0-4) 07/18/19 13:30 U Hyaline Cast (Auto) 0 /lpf (0-5) 07/18/19 13:30 U Epithel Cells (Auto) 0-5 /lpf (0-5) 07/18/19 13:30 Urine Bacteria (Auto) Negative (Negative) 07/18/19 13:30 Urine Test Negative (Negative) 07/18/19 13:30 07/18/19 13:30 Urine Test Negative
[2019-07-18] MEDS ORDERED: BUPIVACAINE 0.5 % 5 MG/1 ML MPF 30ML VIAL ONE (14:24)
[2019-07-18] MEDS ORDERED: CONRAY 60% 50 ML VIAL ONE (14:24)
[2019-07-18] MEDS ORDERED: PROPOFOL IV EMULSION 10 MG/ML 20 ML VIAL IV ONE (14:33)
[2019-07-18] MEDS ORDERED: ONDANSETRON INJ 2 MG/ML 2 ML VIAL ONE (14:33)
[2019-07-18] MEDS ORDERED: fentaNYL citrate 100 MCG/2 ML VIAL ONE (14:33)
[2019-07-18] MEDS ORDERED: LIDOCAINE HCL 2% 2 ML VIAL/AMP(20MG/ML) INFIL ONE (14:33)
[2019-07-18] MEDS ORDERED: GLYCOPYRROLATE 0.2 MG/ML VIAL ONE ×2 (14:33→15:41)
[2019-07-18] MEDS ORDERED: DEXAMETHASONE SOD INJ 4 MG/ML VIAL ONE (14:33)
[2019-07-18] MEDS ORDERED: ROCURONIUM BROMIDE 10 MG/ML 5 ML VIAL ONE (14:33)
[2019-07-18] MEDS ORDERED: NEOSTIGMINE METHYLSULFATE 5 MG/5 ML SYR ONE (14:33)
[2019-07-18] MEDS ORDERED: MIDAZOLAM HCL 1 MG/ML 2ML VIAL ONE (14:33)
[2019-07-18] MEDS ORDERED: ACETAMINOPHEN 1000 MG/100 ML IV IV ONE (14:42)
[2019-07-18] MEDS ORDERED: ESMOLOL HCL INJ 10 MG/ML 10ML VIAL IV ONE (16:06)
[2019-07-18] MEDS ORDERED: ACETAMINOPHEN 1,000 MG/100 ML VIAL IV STA (16:27)
--- NOTE | 2019-07-18 16:27 | Fluoroscopy Report ---
INTRAOPERATIVE CHOLANGIOGRAM HISTORY: Post cholecystectomy. FLUOROSCOPY TIME: 25 seconds. 3 fluoroscopic spot images of the right upper quadrant.. FINDINGS: Fluoroscopy was provided for an intraoperative cholangiogram status post cholecystectomy. C ontrast was injected through the cystic duct remnant. The common bile duct is normal in course and ca liber. There are no filling defects seen within the common bile duct to suggest a retained stone. Co ntrast does not extend into the small bowel. There is no intrahepatic bile duct dilatation. IMPRESSION: Fluoroscopy provided for an intraoperative cholangiogram status post cholecystectomy. No filling defects within the common bile duct. However, contrast was not seen within the small bowel. T herefore a punctate stone at the ampulla cannot be excluded. ACT 112: Negative or not required by law. Electronically signed by: Maicol Zhu M.D. 07/18/2019 4:25 PM
--- NOTE | 2019-07-18 16:27 | Post Operative Brief Note ---
PG Immediate Post Op with CF Date of Surgery July 18, 2019 Pre & Post Diagnosis Operation Date: 07/18/19 10:10 Pre-Op Diagnosis: Cholelithiasis. Post-Op Diagnosis: Cholelithiasis. possible choledocholithiasis acute cholecystitis I identified the patient and participated in the time-out.: Yes Procedure Operation Date: 07/18/19 10:10 Actual Procedures p Laparoscopic Cholecystectomy with Cholangiogram - Jonathan Mesa MD, FACS Surgeon Jonathan Mesa MD, FACS Gastroenterology Technician Lore Alonso Estimated Blood Loss 10 Findings Consistent with Post-Op Diagnosis Specimens Specimen Description: A. Gallbladder and contents. Drains Karson-Velasquez Drain
--- NOTE | 2019-07-18 17:11 | Anesthesiology Progress Note ---
Date of Service July 18, 2019 Anesthesia Post Procedure Vital Signs Vital Signs: Temp Pulse Pulse Resp BP BP Pulse Ox 07/18/19 14:17 36.6 C 53 L 16 138/94 97 07/18/19 13:27 158/97 H 95 07/18/19 11:20 100 07/18/19 11:19 146/97 H 100 07/18/19 10:16 181/99 H 07/18/19 10:14 52 L 19 181/99 H 95 07/18/19 08:20 53 L 14 07/18/19 08:10 53 L 13 146/99 H 100 07/18/19 08:00 58 L 15 07/18/19 07:50 50 L 16 07/18/19 07:48 51 L 16 07/18/19 07:44 96 07/18/19 07:28 36.4 C L 52 L 20 196/99 H 99 Pain Intensity Right Abdomen: Pain Intensity: 3 Transfer of Care Handoff Completed per policy Notes Mental Status: alert / awake / arousable and participated in evaluation Patient Amnestic to Procedure: Yes Nausea / Vomiting: adequately controlled Pain: adequately controlled Airway Patency, RR, SpO2: stable & adequate BP & HR: stable & adequate Hydration State: stable & adequate Anesthetic Complications: no major complications apparent and Pt Satisfied with anesthetic care
[2019-07-18] MEDS ORDERED: MoRPHine SULFATE 2 MG/ML CARP IV PRN (17:37)
[2019-07-18] MEDS ORDERED: PROMETHAZINE HCL 12.5 MG in SODIUM CHLORIDE 0.9% 50 ML IV PRN (17:37)
[2019-07-18] MEDS ORDERED: LACTATED RINGER'S 1,000 ML IV SCH (17:37)
[2019-07-18] MEDS ORDERED: HYDROCODONE/ACETAMOPHEN 5/325MG TAB PO PRN ×2 (17:37)
[2019-07-18] MEDS ORDERED: ACETAMINOPHEN 325 MG TAB PO PRN (17:37)
[2019-07-18] MEDS ORDERED: PROMETHAZINE HCL 25 MG in SODIUM CHLORIDE 0.9% 50 ML IV PRN (17:37)
[2019-07-18] MEDS: SODIUM CHLORIDE 0.9% 1000ML 1,000 ML IV SCH (18:30)
--- NOTE | 2019-07-18 19:27 | Operative Report (OR) ---
DATE OF OPERATION: 07/18/2019 NAME OF OPERATION: Laparoscopic cholecystectomy with cholangiogram. PREOPERATIVE DIAGNOSIS: Acute cholecystitis. POSTOPERATIVE DIAGNOSES: Acute cholecystitis with possible choledocholithiasis. STAFF SURGEON: Jonathan Mesa MD. DETECTIVE PRIVATE EYE: Razia Alonso PA-C. ANESTHESIA: General. DESCRIPTION OF PROCEDURE: The patient was brought in the operating room and placed on the operating table in supine position. Her abdomen was prepped and draped in usual fashion. Pneumatic stockings were placed. My blood bank assistant helped with prepping, draping, removal of the gallbladder and closure of the wound. 0.5% plain Marcaine was used to anesthetize all incisions. Incision was made above the umbilicus, carrying dissection down through significant adipose tissue to the fascia, placing a Veress needle producing pneumoperitoneum. An 11 mm port was placed at this level and under visualization, three 5 mm ports were placed, 1 cephalad and 2 laterally. The patient was placed in reverse Trendelenburg position. The gallbladder was severely distended and thickened with some serous ascites consistent with acute inflammation. The gallbladder was aspirated of bile. Dissection was carried out to meredith hepatis, identifying the cystic duct. It was clipped next to the gallbladder, then partially opened, rapid return of bile under pressure was noted. The catheter was easily passed down into the common bile duct; cholangiography was performed. There were no defects in the majority of the common bile duct, except the contrast did not flow into the duodenum. At this point, the cystic duct was clipped and transected. The cystic artery identified, clipped and transected and the gallbladder dissected away from the liver bed. There was significant edema in the posterior wall. Gallbladder was placed in an Endobag. After appropriate irrigation and hemostasis, a #15 round Karson-Velasquez drain was placed through the right lateral 5 mm port site, secured using 3-0 nylon suture, placed into the subhepatic space. The gallbladder was then removed using a 5 mm scope through the umbilical site. The umbilical fascia closed using interrupted 0 PDS suture, subcutaneous tissue reapproximated using 2-0 plain suture and then the skin reapproximated using 5-0 Prolene suture. Drain was placed to suction bulb. The patient was transferred to recovery room in stable condition. I attest to the content of the Intraoperative Record and any orders documented therein. Any exception s are noted below.
[2019-07-19 05:47] LABS: Basophils # (auto) 0.01 K/uL (0-0.2); Basophils % (auto) 0.2 %; Hematocrit (blood only) 42.1 % (37-47); Hemoglobin 13.6 g/dL (12.0-16.0); Lymphocytes # (auto) 0.56 K/uL (1.2-3.4); Lymphocytes % (auto) 9.4 %; Mean Corpuscular Hemoglobin 30.3 pg (25-34); Mean Corpuscular Hgb Conc 32.3 g/dL (32-36); Mean Corpuscular Volume 93.8 fL (80-100); Mean Platelet Volume 12.4 fL (7.4-10.4); Monocytes # (auto) 0.28 K/uL (0.11-0.59); Monocytes % (auto) 4.7 %; Neutrophils # (auto) 5.12 K/uL (1.4-6.5); Neutrophils % (auto) 85.7 %; Platelet Count 204 K/uL (130-400); RDW Coefficient of Variation 13.2 % (11.5-14.5); RDW Standard Deviation 45.5 fL (36.4-46.3); Red Blood Count 4.49 M/uL (4.2-5.4); White Blood Count 5.97 K/uL (4.8-10.8)
--- NOTE | 2019-07-19 06:22 | Surgery Progress Note ---
Date of Service July 19, 2019 Assessment & Plan (1) Status post laparoscopic cholecystectomy: During lap sterling patient had no flow into the duodenum on her cholangiogram Also had significant bilious output from her cystic duct indicating high pressure He did have some pain during the night but is doing better We will check her a.m. labs Have discussed her situation with the GI team Leave drain in place Depending on progress and GI plan patient will need at least 1-2 more days in hospital Continue antibiotics Results & Data Vital Signs (Past 12 Hours) Vital Signs Temp Pulse Pulse Resp BP BP Pulse Ox 07/19/19 05:54 95 07/19/19 03:10 36.8 C 54 L 16 113/67 94 07/18/19 23:32 93 07/18/19 23:31 36.8 C 56 L 14 110/70 89 L 07/18/19 19:44 36.8 C 60 16 124/75 92 07/18/19 18:42 36.8 C 58 L 16 120/79 90 PG Care Time/CCT Total # of Minutes Spent Total Time Spent with Patient: Total time spent is greater than 50% in coordination of care (as documented) at patient's floor/unit and/or counseling patient: Coding Level of Care Code None Diagnoses Status post laparoscopic cholecystectomy Z90.49
[2019-07-19 06:40] LABS: Albumin Level 3.3 gm/dl (3.4-5.0); Bilirubin Direct 0.2 mg/dl (0-0.2); Bilirubin,Total 0.5 mg/dl (0.2-1); Calcium 8.3 mg/dl (8.5-10.1); Creatinine Clr Calc Pharmacy 89.7 ml/min; Est GFR (African American) 89.4; Est GFR (Non-African American) 77.1; Globulin 3.3 gm/dl (2.5-4.0); Phosphorus 3.6 mg/dl (2.5-4.9); Potassium 4.4 mmol/L (3.5-5.1); Total Protein 6.6 gm/dl (6.4-8.2)
[2019-07-19] MEDS: ESCITALOPRAM OXALATE 20 MG TAB PO SCH (08:00)
[2019-07-19] MEDS: BusPIRone 15 MG TAB PO SCH (08:00)
[2019-07-19] MEDS: BuPROPion XL 150 MG TABCR PO SCH (08:00)
[2019-07-19] MEDS: SODIUM CHLORIDE 0.9% 1000ML 1,000 ML IV SCH ×3 (08:05→19:46)
--- NOTE | 2019-07-19 10:39 | Hospitalist Progress Note ---
Date of Service July 19, 2019 Assessment & Plan (1) Acute calculous cholecystitis: This patient is a 53-year-old female with history of obesity, chronic sinusitis and rhinitis,, borderline hypertension, and depression, who presents to the ER with acute calculus cholecystitis. Blood pressures are likely elevated secondary to pain in the setting of borderline hypertension previously. LFTs are normal but may be due to early course of illness. * Per primary service * POD #1 S/P lab sterling with Dr. Mesa on 07/17. EBL 10mL. Pre-op h/h 14.4/44.0. Patient without flow into duodenum on cholangiogram in addition to significant bilious output from cystic duct. AST elevated at 54 Keep NPO GI consulted --> plan for ERCP this afternoon * PT/OT/DVT prophylaxis per primary service * H/h stable at 13.6/42.1 -- likely combination of dilution from IVF as well as acute blood loss * Continue IV mefoxin per surgery * Pain control with morphine, zofran for nausea * CBC in AM (2) Biliary colic: * As above (3) Hypertension, benign essential, goal below 140/90: * Blood pressure elevated here on admission likely secondary to pain into the 180s over 90s systolic, however has improved with IV morphine * Patient reports she frequently is in the 140s over 90s when she checks her blood pressure at work. * She does have trace pitting edema lower extremities and history of varicose veins * She is completely asymptomatic from her blood pressure at this time-no headache or chest pain or neurological deficits, no shortness of breath * Could benefit from starting chlorthalidone or HCTZ 25 mg once daily after she recovers from her surgery * In the meantime, would add hydralazine 10 mg IV every 8 hours as needed systolic blood pressure greater than 180 * BP stable at 126/84 (4) Chronic sinusitis: * Chronic issue, follows with fisheries specialist * No current acute issues (5) Obesity: * BMI 35.9 * She is working on changing her diet and weight loss (6) Osteopenia: * Noted in the chart * Not on calcium or vitamin D that I can see * Follow-up with PCP (7) Depression: * Stable * Continue home bupropion, buspirone, and Lexapro when not NPO (8) Allergic rhinitis: * As above, not currently on any medications for this (9) Hepatomegaly: * Noted hepatomegaly on MRCP --> undergoing ERCP this afternoon. AST elevated at 54 * Could be due to fatty liver * Follow-up with PCP as an outpatient * Recommended weight loss (10) DVT prophylaxis: * SCDs * would recommend Lovenox SQ postoperatively at surgeon's discretion Thank you for allowing hospitalist service to participate in the care of Ms. Ace. Hospitalist service will follow along. Admission and Anticipated Discharge Date Admission Date: July 18, 2019 Subjective Patient states her abdominal pain is decreased, but still present in her epigastric region. Did have episode of increase pain last evening. No bowel movement since admission, but she states she deals with constipation on a regular basis. Continues to be NPO for ERCP with Dr. Lowery this afternoon. Denies fevers, chills, chest pain, palpitations, shortness of breath, cough, nausea, vomiting at this time. Questions/concerns addressed. Review of Systems Review of Systems: All systems reviewed & are unremarkable except as noted in HPI & below Physical Exam Constitutional: WD/WN, vitals as above + obese; no acute distress Eyes: PERRL, conjunctivae normal, anicteric sclerae ENMT: dry mm Neck: trachea midline, no thyromegaly Respiratory: normal respiratory effort, lungs clear to auscultation Cardiovascular: Rate/Rhythm: regular rate and regular rhythm Heart Sounds: normal S1 and normal S2; no gallop, no murmur and no cardiac rub Extremities: + edema (trace b/l LE) Gastrointestinal (Abdomen): Inspection/Auscultation: normal bowel sounds; abdomen not distended Percussion/Palpation: + abdomen tender (minimally tender epigastric region) and abdomen soft; no guarding and abdomen not rigid TANA drain in place with seosaninous drainage. surgical incisions to abdomen c/d/i no evidence of erythema or drainage. Musculoskeletal: no cyanosis or clubbing, extremities motor strength 5/5 Skin: no rashes, warm and dry Neurologic: patellar DTR's 2+ bilat, sensation intact Psychiatric: A+Ox3, euthymic affect Lymphatic: no cervical or axillary lymphadenopathy Results & Data Results & Data ([facility]) Vital Signs (Past 12 Hours) Vital Signs Temp Pulse Resp BP Pulse Ox 07/19/19 07:45 36.4 C L 50 L 22 126/84 92 06/04/20 05:54 95 07/19/19 03:10 36.8 C 54 L 16 113/67 94 07/18/19 23:32 93 07/18/19 23:31 36.8 C 56 L 14 110/70 89 L Laboratory Results 07/19/19 07/19/19 07/18/19 Range/Units 05:32 05:32 13:30 WBC 5.97 (4.8-10.8) K/uL RBC 4.49 (4.2-5.4) M/uL Hgb 13.6 (12.0-16.0) g/dL Hct 42.1 (37-47) % MCV 93.8 (80-100) fL MCH 30.3 (25-34) pg MCHC 32.3 (32-36) g/dL RDW Std Deviation 45.5 (36.4-46.3) fL RDW Coeff of Sandi 13.2 (11.5-14.5) % Plt Count 204 (130-400) K/uL MPV 12.4 H (7.4-10.4) fL Immature Gran % (Auto) 0.0 % Neut % (Auto) 85.7 % Lymph % (Auto) 9.4 % [place] % (Auto) 4.7 % Eos % (Auto) 0.0 % Baso % (Auto) 0.2 % Immature Gran # (Auto) 0.00 (0.00-0.02) K/uL Neut # (Auto) 5.12 (1.4-6.5) K/uL Lymph # (Auto) 0.56 L (1.2-3.4) K/uL [place] # (Auto) 0.28 (0.11-0.59) K/uL Eos # (Auto) 0.00 (0-0.5) K/uL Baso # (Auto) 0.01 (0-0.2) K/uL Sodium 142 (136-145) mmol/L Potassium 4.4 (3.5-5.1) mmol/L Chloride 111 H (98-107) mmol/L Carbon Dioxide 26 (21-32) mmol/L Anion Gap 5.0 (3-11) BUN 8 D (7-18) mg/dl Creatinine 0.85 (0.6-1.2) mg/dl Est Cr Clr Drug Dosing 89.7 ml/min Est GFR ( Amer) 89.4 Est GFR (Non-Af Amer) 77.1 BUN/Creatinine Ratio 9.0 L (10-20) Glucose 126 H (70-99) mg/dl Calcium 8.3 L (8.5-10.1) mg/dl Phosphorus 3.6 (2.5-4.9) mg/dl Total Bilirubin 0.5 (0.2-1) mg/dl Direct Bilirubin 0.2 (0-0.2) mg/dl AST 54 H (15-37) U/L ALT 74 (12-78) U/L Alkaline Phosphatase 100 (45-117) U/L Total Protein 6.6 (6.4-8.2) gm/dl Albumin 3.3 L (3.4-5.0) gm/dl Globulin 3.3 (2.5-4.0) gm/dl Albumin/Globulin Ratio 1.0 (0.9-2) Urine Color Urine Appearance (Clear) Urine pH (4.5-7.5) Ur Specific [place] (1.000-1.030) Urine Protein (Negative) Urine Glucose (UA) (Negative) Urine Ketones (Negative) Urine Blood (Negative) Urine Nitrite (Negative) Urine Bilirubin (Negative) Urine Urobilinogen (Negative) Ur Leukocyte Esterase (Negative) Urine WBC (Auto) (0-5) /hpf Urine RBC (Auto) (0-4) /hpf U Hyaline Cast (Auto) (0-5) /lpf U Epithel Cells (Auto) (0-5) /lpf Urine Bacteria (Auto) (Negative) Urine Test Negative (Negative) 07/18/19 Range/Units 13:30 WBC (4.8-10.8) K/uL RBC (4.2-5.4) M/uL Hgb (12.0-16.0) g/dL Hct (37-47) % MCV (80-100) fL MCH (25-34) pg MCHC (32-36) g/dL RDW Std Deviation (36.4-46.3) fL RDW Coeff of Sandi (11.5-14.5) % Plt Count (130-400) K/uL MPV (7.4-10.4) fL Immature Gran % (Auto) % Neut % (Auto) % Lymph % (Auto) % [place] % (Auto) % Eos % (Auto) % Baso % (Auto) % Immature Gran # (Auto) (0.00-0.02) K/uL Neut # (Auto) (1.4-6.5) K/uL Lymph # (Auto) (1.2-3.4) K/uL [place] # (Auto) (0.11-0.59) K/uL Eos # (Auto) (0-0.5) K/uL Baso # (Auto) (0-0.2) K/uL Sodium (136-145) mmol/L Potassium (3.5-5.1) mmol/L Chloride (98-107) mmol/L Carbon Dioxide (21-32) mmol/L Anion Gap (3-11) BUN (7-18) mg/dl Creatinine (0.6-1.2) mg/dl Est Cr Clr Drug Dosing ml/min Est GFR ( Amer) Est GFR (Non-Af Amer) BUN/Creatinine Ratio (10-20) Glucose (70-99) mg/dl Calcium (8.5-10.1) mg/dl Phosphorus (2.5-4.9) mg/dl Total Bilirubin (0.2-1) mg/dl Direct Bilirubin (0-0.2) mg/dl AST (15-37) U/L ALT (12-78) U/L Alkaline Phosphatase (45-117) U/L Total Protein (6.4-8.2) gm/dl Albumin (3.4-5.0) gm/dl Globulin (2.5-4.0) gm/dl Albumin/Globulin Ratio (0.9-2) Urine Color Yellow Urine Appearance Clear (Clear) Urine pH 8.5 H (4.5-7.5) Ur Specific [place] 1.011 (1.000-1.030) Urine Protein Negative (Negative) Urine Glucose (UA) Negative (Negative) Urine Ketones Negative (Negative) Urine Blood Trace H (Negative) Urine Nitrite Negative (Negative) Urine Bilirubin Negative (Negative) Urine Urobilinogen Negative (Negative) Ur Leukocyte Esterase Negative (Negative) Urine WBC (Auto) 0 (0-5) /hpf Urine RBC (Auto) 0-4 (0-4) /hpf U Hyaline Cast (Auto) 0 (0-5) /lpf U Epithel Cells (Auto) 0-5 (0-5) /lpf Urine Bacteria (Auto) Negative (Negative) Urine Test (Negative) PG Care Time/CCT Total # of Minutes Spent Total Time Spent with Patient: Total time spent is greater than 50% in coordination of care (as documented) at patient's floor/unit and/or counseling patient: Coding Level of Care Code 31226 Subseq Hosp Care Lvl 2 Diagnoses Acute calculous cholecystitis K80.00 Biliary colic K80.50 Hypertension, benign essential, goal below 140/90 I10 Chronic sinusitis J32.9 Obesity E66.9 Osteopenia M85.80 Depression F32.9 Allergic rhinitis J30.9 Hepatomegaly R16.0 DVT prophylaxis Z29.9
--- NOTE | 2019-07-19 11:20 | Gastrointestinal Consultation ---
Date of Consultation July 19, 2019 Assessment & Plan (1) Dilated cbd, acquired: Pt is a 53 y/o female who underwent lap sterling yesterday for symptomatic cholecystitis, and CBD found to be mildly prominent on MRCP; intra-op cholangiogram indicated no filling defect in the CBD however contrast was not seen in the small bowel, concerning for distal CBD obstruction (stone/sludge/mass/stenosis?). This AM has a slight bump in AST; continues to have epigastric discomfort. Abd is soft, she's HD stable. - Keep NPO - Continue IVF - Continue empiric ABX - ERCP today. I spoke with pt's Vaughn via phone at pt's request to review work-up and planned procedure - Continue analgesia PRN - Continue antiemetics PRN - Further rec's to follow procedure Thank you for allowing us to participate in the care of this patient. Please call with any acute changes, questions or concerns. Please see addendum below with additional recommendation from my supervising physician. (2) Epigastric pain: Supervising Physician Co-Signing Physician Notes I performed a history and physical examination of the patient today, including specifically on physical exam - soft abdomen. I have discussed the patient's management with the advanced practitioner. Please refer to the nurse practitioner's note for the documented findings and plan of care. ERCP today in view of dilated CBD and abnormal IOC. History of Present Illness Reason for Consultation: possible distal CBD obstr Attending Physician: Jonathan Mesa MD, [facility] History of Present Illness Pt is a 53 y/o female with PMhx depression, obesity, and others below admitted yesterday after presenting with epigastric abd discomfort, found to have symptomatic cholelithiasis. LFTs, tbili, CBC, renal fxn were WNL, MRCP with CBD 7 mm, suspect small obstructing calculus in the cystic duct. She underwent lap sterling yesterday afternoon. Intra-op cholangiogram revealed no filling defects within the common bile duct. However, contrast was not seen within the small bowel. Therefore a punctate stone at the ampulla cannot be excluded. This AM reporting still having epigastric discomfort, feels like "a bowling ball" is in her abd; no nausea; pain is improved but not relieved with IV pain meds; rate it at a 2/10. She's a febrile, HD stable. She remains on IVF, empiric ABX. AST bumped to 54, rest of LFTs, CBC renal fxn WNL. Had some clear liquids around 8:30; no solid food. Denies vomiting, hematemesis, melena, hematochezia, gas/bloat, fever, jaundice, dark urine, paez stool. MRCP 07/18/19: 1. Cholelithiasis with evidence of acute cholecystitis. 2. Suspect a small obstructing calculus within the cystic duct. 3. There is no intrahepatic biliary ductal dilatation. No stones are seen within the common bile duct. 4. Hepatomegaly. Allergies Allergy/AdvReac Type Severity Reaction Status Date / Time No Known Drug Allergies Allergy Verified 07/18/19 08:09 Home Medications Home Medications Medication Instructions Recorded Confirmed Type buspirone 15 mg PO QAM 10/01/18 07/18/19 History escitalopram oxalate [Lexapro] 20 mg PO QAM 10/01/18 07/18/19 History bupropion HCl 150 mg 24 hr tablet, 150 mg PO QAM #90 tab 10/24/18 07/18/19 History extended release aspirin 81 mg tablet,delayed 81 mg PO DAILY #30 tab 06/11/19 07/18/19 Rx release Patient History Medical History Allergic rhinitis Chronic sinusitis (Chronic) Depression Hepatomegaly Hypertension, benign essential, goal below 140/90 (Chronic) Obesity (Chronic) Osteopenia (Chronic) Varicose veins of both lower extremities (Chronic) Surgical History History of right salpingo-oophorectomy cystadenofibroma S/P knee surgery S/P sinus surgery S/P wisdom tooth extraction Family History Father Acute myocardial infarction Myocardial infarction Mother Hypertension FHx: deafness or hearing loss Sister Lung cancer Malignant neoplasm of kidney Unknown Cardiovascular disorder Grandmother Osteoporosis Grandfather Skin cancer Grandmother (Maternal) Breast cancer Denies family history of Colon cancer Ovarian cancer Prostate cancer Social History Preferred Language: Welsh Communication Ability: Effective Visual Impairment: No Limitations Hearing Ability: Normal Beliefs That Will Affect Care: None marital status: Single Current Living Situation: Significant Other Current Living Situation Comment: lives with BF and her daughter and BF current occupational status: employed current occupation: Clerk [employer] Feels Safe at Home: Yes Safety Concerns: Feels Safe At This Time Smoking Status: Former smoker Do You Dip or Chew Tobacco: No ; Second Hand Exposure: No ; Hx Alcohol Use: Yes Alcohol type: wine and hard liquor Alcohol Intake Frequency: Weekly Hx Substance Use: No Diet Comment: lactose intolerant, drinks almond milk during the past year weight has: decreased > 10 lbs Dental Care, Regularly: Yes Physical Activity Frequency: Does not Exercise Review of Systems Constitutional: no fever, no chills and no weight loss Eyes: no icterus Respiratory: no cough and no dyspnea Cardiovascular: no chest pain, no dyspnea and no edema Gastrointestinal: as per Subjective / HPI Genitourinary: no dysuria Integumentary: no rashes, jaundice Physical Exam Constitutional: WD/WN, vitals as above no acute distress Eyes: + anicteric sclerae Respiratory: normal respiratory effort, lungs clear to auscultation Cardiovascular: RRR, no murmur, no edema Gastrointestinal (Abdomen): Inspection/Auscultation: abdomen normal to inspection; abdomen not distended Percussion/Palpation: abdomen soft mildly tender to epigastrium; nondistended, no rebound, guarding. TANA drain in place; with scant serosaguinous drainage; no bile; surgical incisions with bandages C/D/I Skin: no rashes, warm and dry Psychiatric: A+Ox3, euthymic affect Results & Data ([facility]) Vital Signs (Past 12 Hours) Vital Signs Temp Pulse Resp BP Pulse Ox 07/19/19 07:45 36.4 C L 50 L 22 126/84 92 07/19/19 05:54 95 07/19/19 03:10 36.8 C 54 L 16 113/67 94 07/18/19 23:32 93 07/18/19 23:31 36.8 C 56 L 14 110/70 89 L Laboratory Results 07/19/19 07/19/19 07/18/19 Range/Units 05:32 05:32 13:30 WBC 5.97 (4.8-10.8) K/uL RBC 4.49 (4.2-5.4) M/uL Hgb 13.6 (12.0-16.0) g/dL Hct 42.1 (37-47) % MCV 93.8 (80-100) fL MCH 30.3 (25-34) pg MCHC 32.3 (32-36) g/dL RDW Std Deviation 45.5 (36.4-46.3) fL RDW Coeff of Sandi 13.2 (11.5-14.5) % Plt Count 204 (130-400) K/uL MPV 12.4 H (7.4-10.4) fL Immature Gran % (Auto) 0.0 % Neut % (Auto) 85.7 % Lymph % (Auto) 9.4 % [place] % (Auto) 4.7 % Eos % (Auto) 0.0 % Baso % (Auto) 0.2 % Immature Gran # (Auto) 0.00 (0.00-0.02) K/uL Neut # (Auto) 5.12 (1.4-6.5) K/uL Lymph # (Auto) 0.56 L (1.2-3.4) K/uL [place] # (Auto) 0.28 (0.11-0.59) K/uL Eos # (Auto) 0.00 (0-0.5) K/uL Baso # (Auto) 0.01 (0-0.2) K/uL Sodium 142 (136-145) mmol/L Potassium 4.4 (3.5-5.1) mmol/L Chloride 111 H (98-107) mmol/L Carbon Dioxide 26 (21-32) mmol/L Anion Gap 5.0 (3-11) BUN 8 D (7-18) mg/dl Creatinine 0.85 (0.6-1.2) mg/dl Est Cr Clr Drug Dosing 89.7 ml/min Est GFR ( Amer) 89.4 Est GFR (Non-Af Amer) 77.1 BUN/Creatinine Ratio 9.0 L (10-20) Glucose 126 H (70-99) mg/dl Calcium 8.3 L (8.5-10.1) mg/dl Phosphorus 3.6 (2.5-4.9) mg/dl Total Bilirubin 0.5 (0.2-1) mg/dl Direct Bilirubin 0.2 (0-0.2) mg/dl AST 54 H (15-37) U/L ALT 74 (12-78) U/L Alkaline Phosphatase 100 (45-117) U/L Total Protein 6.6 (6.4-8.2) gm/dl Albumin 3.3 L (3.4-5.0) gm/dl Globulin 3.3 (2.5-4.0) gm/dl Albumin/Globulin Ratio 1.0 (0.9-2) Urine Color Urine Appearance (Clear) Urine pH (4.5-7.5) Ur Specific [place] (1.000-1.030) Urine Protein (Negative) Urine Glucose (UA) (Negative) Urine Ketones (Negative) Urine Blood (Negative) Urine Nitrite (Negative) Urine Bilirubin (Negative) Urine Urobilinogen (Negative) Ur Leukocyte Esterase (Negative) Urine WBC (Auto) (0-5) /hpf Urine RBC (Auto) (0-4) /hpf U Hyaline Cast (Auto) (0-5) /lpf U Epithel Cells (Auto) (0-5) /lpf Urine Bacteria (Auto) (Negative) Urine Test Negative (Negative) 07/18/19 Range/Units 13:30 WBC (4.8-10.8) K/uL RBC (4.2-5.4) M/uL Hgb (12.0-16.0) g/dL Hct (37-47) % MCV (80-100) fL MCH (25-34) pg MCHC (32-36) g/dL RDW Std Deviation (36.4-46.3) fL RDW Coeff of Sandi (11.5-14.5) % Plt Count (130-400) K/uL MPV (7.4-10.4) fL Immature Gran % (Auto) % Neut % (Auto) % Lymph % (Auto) % [place] % (Auto) % Eos % (Auto) % Baso % (Auto) % Immature Gran # (Auto) (0.00-0.02) K/uL Neut # (Auto) (1.4-6.5) K/uL Lymph # (Auto) (1.2-3.4) K/uL [place] # (Auto) (0.11-0.59) K/uL Eos # (Auto) (0-0.5) K/uL Baso # (Auto) (0-0.2) K/uL Sodium (136-145) mmol/L Potassium (3.5-5.1) mmol/L Chloride (98-107) mmol/L Carbon Dioxide (21-32) mmol/L Anion Gap (3-11) BUN (7-18) mg/dl Creatinine (0.6-1.2) mg/dl Est Cr Clr Drug Dosing ml/min Est GFR ( Amer) Est GFR (Non-Af Amer) BUN/Creatinine Ratio (10-20) Glucose (70-99) mg/dl Calcium (8.5-10.1) mg/dl Phosphorus (2.5-4.9) mg/dl Total Bilirubin (0.2-1) mg/dl Direct Bilirubin (0-0.2) mg/dl AST (15-37) U/L ALT (12-78) U/L Alkaline Phosphatase (45-117) U/L Total Protein (6.4-8.2) gm/dl Albumin (3.4-5.0) gm/dl Globulin (2.5-4.0) gm/dl Albumin/Globulin Ratio (0.9-2) Urine Color Yellow Urine Appearance Clear (Clear) Urine pH 8.5 H (4.5-7.5) Ur Specific [place] 1.011 (1.000-1.030) Urine Protein Negative (Negative) Urine Glucose (UA) Negative (Negative) Urine Ketones Negative (Negative) Urine Blood Trace H (Negative) Urine Nitrite Negative (Negative) Urine Bilirubin Negative (Negative) Urine Urobilinogen Negative (Negative) Ur Leukocyte Esterase Negative (Negative) Urine WBC (Auto) 0 (0-5) /hpf Urine RBC (Auto) 0-4 (0-4) /hpf U Hyaline Cast (Auto) 0 (0-5) /lpf U Epithel Cells (Auto) 0-5 (0-5) /lpf Urine Bacteria (Auto) Negative (Negative) Urine Test (Negative)
--- NOTE | 2019-07-19 12:30 | Electrocardiogram Report ---
Test Reason : Blood Pressure : / mmHG Vent. Rate : 051 BPM Atrial Rate : 051 BPM P-R Int : 150 ms QRS Dur : 086 ms QT Int : 438 ms P-R-T Axes : 010 017 007 degrees QTc Int : 403 ms Sinus bradycardia Otherwise normal ECG When compared with ECG of 21-FEB-2015 22:24, No significant change Confirmed by Hector Salcido [id number]) on 07/19/2019 12:30:47 PM Referred By: REFERRED SELF Confirmed By:Hector Salcido
--- NOTE | 2019-07-19 12:31 | History & Physical Bridge Note ---
Date of Service July 19, 2019 History & Physical Bridge Note I have examined the patient, reviewed the History & Physical and in the interval since the performance of the History & Physical I have noted the following changes of clinical significance: no changes noted
[2019-07-19] MEDS ORDERED: fentaNYL citrate 100 MCG/2 ML VIAL ONE ×2 (14:27→14:51)
[2019-07-19] MEDS ORDERED: INDOMETHACIN 50 MG SUPP PR ONE (14:30)
--- NOTE | 2019-07-19 14:36 | Anesthesiology Consultation ---
Date of Service July 19, 2019 Assessment & Plan Chart Review Chart Review: Acceptable Risk for Surgery Consults Requested none History Surgery Operation Date: 07/18/19 10:10 Proposed Procedures p Laparoscopic Cholecystectomy with Cholangiogram - Jonathan Mesa MD, FACS Operation Date: 07/19/19 13:00 Proposed Procedures p Endoscopic Retrograde Cholangiopancreatogram - Jenny Lowery MD Height/Weight Height: 5 ft 6 in Weight: 100.9 kg Allergies Allergy/AdvReac Type Severity Reaction Status Date / Time No Known Drug Allergies Allergy Verified 07/18/19 08:09 Medications Home Medications Medication Instructions Recorded Confirmed Last Taken buspirone 15 mg PO QAM 10/01/18 07/18/19 07/17/19 escitalopram oxalate [Lexapro] 20 mg PO QAM 10/01/18 07/18/19 07/17/19 bupropion HCl 150 mg 24 hr tablet, 150 mg PO QAM #90 tab 10/24/18 07/18/19 07/17/19 extended release aspirin 81 mg tablet,delayed 81 mg PO DAILY #30 tab 06/11/19 07/18/19 07/17/19 release Active Medications Generic Name Dose Route Start Last Admin Trade Name Freq PRN Reason Stop Dose Admin Hydrocodone Bitart/Acetaminophen 1 tab 07/18/19 17:37 07/18/19 21:34 [place] 5/325 PO 08/01/19 17:36 1 tab Q4HWA PRN Administration Pain Hydrocodone Bitart/Acetaminophen 2 tab 07/18/19 17:37 07/19/19 08:00 [place] 5/325 PO 08/01/19 17:36 2 tab Q4HWA PRN Administration Pain Bupropion HCl 150 mg 07/19/19 09:00 07/19/19 08:00 Wellbutrin-Xl PO 08/18/19 08:59 150 mg QAM ANTONIO Administration Buspirone HCl 15 mg 07/19/19 09:00 07/19/19 08:00 Buspar PO 08/18/19 08:59 15 mg QAM ANTONIO Administration Escitalopram Oxalate 20 mg 07/19/19 09:00 07/19/19 08:00 Lexapro Tab PO 08/18/19 08:59 20 mg QAM ANTONIO Administration Cefoxitin Sodium 1,000 mg/ 60 mls @ 100 mls/hr 07/18/19 19:00 07/19/19 12:58 Dextrose IV 07/28/19 18:59 Infused Q6H ANTONIO Infusion Sodium Chloride 1,000 mls @ 80 mls/hr 07/18/19 17:37 07/19/19 08:05 Nss 1000ml IV 08/17/19 17:36 80 mls/hr .[id number] ANTONIO Administration Morphine Sulfate 4 mg 07/18/19 11:41 07/18/19 13:32 Morphine Sulfate IV 08/01/19 11:40 4 mg Q30M PRN Administration Pain Morphine Sulfate 2 mg 07/18/19 17:37 07/18/19 18:27 Morphine Sulfate IV 08/01/19 17:36 2 mg Q1H PRN Administration MILD Pain (Scale 1,2,3) NPO Date Last Intake of Fluids: 07/19/19 Time Last Intake of Fluids: 08:30 Last Intake of Fluids Comment: clear liquid breakfast Date Last Intake of Solids: 07/18/19 Time Last Intake of Solids: 06:45 Past Medical History Medical History Allergic rhinitis Chronic sinusitis (Chronic) Depression Hepatomegaly Hypertension, benign essential, goal below 140/90 (Chronic) Obesity (Chronic) Osteopenia (Chronic) Varicose veins of both lower extremities (Chronic) Exercise / Class Metabolic Activity II 4-5 Yardwork/Stairs/Walk up hill Past Family History Family History Father Acute myocardial infarction Myocardial infarction Mother Hypertension FHx: deafness or hearing loss Sister Lung cancer Malignant neoplasm of kidney Unknown Cardiovascular disorder Grandmother Osteoporosis Grandfather Skin cancer Grandmother (Maternal) Breast cancer Denies family history of Colon cancer Ovarian cancer Prostate cancer Past Surgical History Surgical History History of right salpingo-oophorectomy cystadenofibroma S/P knee surgery S/P sinus surgery S/P wisdom tooth extraction Past Anesthesia History No Hx of Anesthesia Complications and No Family Hx of Anesthesia Complications History of PONV No Hx of PONV and No Hx of Motion Sickness Social History Smoking Status: Former smoker Do You Dip or Chew Tobacco: No Hx Alcohol Use: Yes Alcohol type: wine and hard liquor alcohol intake frequency: holidays/special occasions only Hx Substance Use: No Physical Exam Vital Signs Last Vital Signs Temp 36.6 C 07/19/19 13:39 Pulse 50 L 07/19/19 13:39 Resp 16 07/19/19 13:39 BP 132/88 07/19/19 13:39 Pulse Ox 96 07/19/19 13:39 Testing Laboratory Results 07/19/19 05:32 07/19/19 05:32 Urine Color Yellow 07/18/19 13:30 Urine Appearance Clear (Clear) 07/18/19 13:30 Urine pH 8.5 (4.5-7.5) H 07/18/19 13:30 Ur Specific [place] 1.011 (1.000-1.030) 07/18/19 13:30 Urine Protein Negative (Negative) 07/18/19 13:30 Urine Glucose (UA) Negative (Negative) 07/18/19 13:30 Urine Ketones Negative (Negative) 07/18/19 13:30 Urine Nitrite Negative (Negative) 07/18/19 13:30 Ur Leukocyte Esterase Negative (Negative) 07/18/19 13:30 Urine WBC (Auto) 0 /hpf (0-5) 07/18/19 13:30 Urine RBC (Auto) 0-4 /hpf (0-4) 07/18/19 13:30 U Hyaline Cast (Auto) 0 /lpf (0-5) 07/18/19 13:30 U Epithel Cells (Auto) 0-5 /lpf (0-5) 07/18/19 13:30 Urine Bacteria (Auto) Negative (Negative) 07/18/19 13:30 Urine Test Negative (Negative) 07/18/19 13:30 07/18/19 13:30 Urine Test Negative
[2019-07-19] MEDS ORDERED: ePHEDrine sulfate 50 MG/ML AMP IV PRN (14:37)
[2019-07-19] MEDS ORDERED: fentaNYL citrate 100 MCG/2 ML VIAL IV PRN (14:37)
[2019-07-19] MEDS ORDERED: ONDANSETRON INJ 2 MG/ML 2 ML VIAL IV PRN (14:37)
[2019-07-19] MEDS ORDERED: HYDROmorphone INJ 2 MG/ML SYR/VIAL IV PRN (14:37)
[2019-07-19] MEDS ORDERED: PROMETHAZINE HCL 12.5 MG in SODIUM CHLORIDE 0.9% 50 ML IV PRN (14:37)
[2019-07-19] MEDS ORDERED: ATROPINE SULFATE 0.1 MG/ML 10ML SYR IV PRN (14:37)
[2019-07-19] MEDS ORDERED: DEXAMETHASONE SOD INJ 4 MG/ML VIAL IV PRN (14:37)
[2019-07-19] MEDS ORDERED: METOCLOPRAMIDE HCL INJ 5 MG/ML 2 ML VIAL IV PRN (14:37)
[2019-07-19] MEDS ORDERED: MIDAZOLAM HCL 1 MG/ML 2ML VIAL ONE (14:45)
--- NOTE | 2019-07-19 15:10 | Operative Report ---
Post Operative Report Pre & Post Diagnosis Operation Date: 07/18/19 10:10 Pre-Op Diagnosis: Cholelithiasis. Post-Op Diagnosis: Cholelithiasis. Operation Date: 07/19/19 13:00 Pre-Op Diagnosis: Dilated common bile duct. Post-Op Diagnosis: Dilated common bile duct. I identified the patient and participated in the time-out.: Yes Procedure Operation Date: 07/18/19 10:10 Actual Procedures p Laparoscopic Cholecystectomy with Cholangiogram - Jonathan Mesa MD, FACS Operation Date: 07/19/19 13:00 Actual Procedures p Endoscopic Retrograde Cholangiopancreatogram - Jenny Lowery MD Surgeon Jenny Lowery MD Real Estate Appraiser Supervisor Lore Alonso Estimated Blood Loss 10 Findings See Below (CBD stone removed) Specimens ERCP Description of Procedure ERCP I attest to the content of the Intraoperative Record and any orders documented therein. Any exceptions are noted below.
--- NOTE | 2019-07-19 15:21 | GI REPORT ---
Patient Name: Emma Ace Procedure Date: 07/19/2019 2:35 PM Date of : 1965 Admit Type: Inpatient Age: 53 Gender: Female Attending MD: Jenny Lowery MD Procedure: ERCP Providers: Jenny Lowery MD Referring MD: Jonathan Mesa Indications: Abnormal intraoperative cholangiogram, Biliary dilation on magnetic resonance cholangiopancreatography, Evaluation and possible treatment of bile duct stone(s) Medicines: Propofol per Anesthesia Complications: No immediate complications. Estimated Blood Loss: Estimated blood loss: none. Procedure: Pre-Anesthesia Assessment: - Prior to the procedure, a History and Physical was performed, and patient medications, allergies and sensitivities were reviewed. The patient's tolerance of previous anesthesia was reviewed. - The risks and benefits of the procedure and the sedation options and risks were discussed with the patient. All questions were answered and informed consent was obtained. - Patient identification and proposed procedure were verified prior to the procedure by the physician and the nurse. The procedure was verified in the procedure room. - Pre-procedure physical examination revealed no contraindications to sedation. After obtaining informed consent, the scope was passed under direct vision. Throughout the procedure, the patient's blood pressure, pulse, and oxygen saturations were monitored continuously. The Scope was introduced through the mouth, and advanced to the duodenum and used for direct visualization of the bile duct. The ERCP was accomplished without difficulty. The patient tolerated the procedure well. Findings: A fish cutting machine operator film of the abdomen was obtained. Surgical clips, consistent with a previous cholecystectomy, were seen in the area of the right upper quadrant of the abdomen. The esophagus was successfully intubated under direct vision. The scope was advanced to a normal major papilla in the descending duodenum without detailed examination of the pharynx, larynx and associated structures, and upper GI tract. The upper GI tract was grossly normal. A 0.035 inch straight standard wire was passed into the biliary tree. The Fusion OMNI sphincterotome was passed over the guidewire and the bile duct was then deeply cannulated. Contrast was injected. I personally interpreted the bile duct images. Ductal flow of contrast was adequate. Image quality was adequate. Contrast extended to the main bile duct. The main bile duct was mildly dilated, with a stone causing an obstruction. The largest diameter was 8 mm. The biliary orifice was stenotic. This appeared benign. Biliary sphincterotomy was made with a monofilament traction (standard) sphincterotome using ERBE electrocautery. There was no post-sphincterotomy bleeding. The biliary tree was swept with a 15 mm balloon starting at the bifurcation. One stone was removed. No stones remained. Indomethacin 100 mg was given via suppository to decrease the risk of post-ERCP pancreatitis (PEP). Impression: - Benign biliary papillary stenosis. - Choledocholithiasis was found. Complete removal was accomplished by biliary sphincterotomy and balloon extraction. Recommendation: - [facility]. - Avoid aspirin and nonsteroidal anti-inflammatory medicines for 5 days. - Clear liquid diet today, then advance as tolerated. - Recall GI if needed. Jenny Lowery MD 07/19/2019 3:21:20 PM This report has been signed electronically. Note Initiated On: 07/19/2019 2:35 PM Number of Addenda: 0 I attest to the content of the Intraoperative Record and orders documented therein, exceptions below {[id number]}
--- NOTE | 2019-07-19 15:25 | Fluoroscopy Report ---
[place] ERCP biliary ductal CLINICAL HISTORY: ERCP IN OR COMPARISON STUDY: MRCP 07/18/2019. FLUOROSCOPY TIME: 14 seconds. FINDINGS: 9 fluoroscopic spot images of the right upper quadrant. The ampulla was cannulated and cont rast was injected into the common bile duct. A balloon sweep was performed. No filling defects identi fied within the common bile duct post balloon sweep. Prior cholecystectomy. IMPRESSION: Fluoroscopy provided for ERCP. ACT 112: Negative or not required by law. Electronically signed by: Maicol Zhu M.D. 07/19/2019 3:24 PM
[2019-07-19] MEDS ORDERED: PROPOFOL IV EMULSION 10 MG/ML 20 ML VIAL IV ONE (15:40)
[2019-07-19] MEDS ORDERED: LIDOCAINE HCL 2% 2 ML VIAL/AMP(20MG/ML) INFIL ONE (15:41)
--- NOTE | 2019-07-19 15:54 | Anesthesiology Progress Note ---
Date of Service July 19, 2019 Anesthesia Post Procedure Vital Signs Vital Signs: Temp Pulse Pulse Pulse Resp BP BP 07/19/19 15:50 36.3 C L 52 L 13 143/87 H 07/19/19 15:40 55 L 18 137/84 07/19/19 15:30 36.1 C L 60 13 142/90 H 07/19/19 13:39 36.6 C 50 L 16 132/88 07/19/19 07:45 36.4 C L 50 L 22 126/84 07/19/19 05:54 07/19/19 03:10 36.8 C 54 L 16 113/67 07/18/19 23:32 07/18/19 23:31 36.8 C 56 L 14 110/70 07/18/19 19:44 36.8 C 60 16 124/75 07/18/19 18:42 36.8 C 58 L 16 120/79 07/18/19 18:18 36.8 C 57 L 16 133/84 07/18/19 17:40 36.6 C 58 L 16 127/88 07/18/19 17:25 36.5 C 61 13 129/75 07/18/19 17:15 62 15 139/98 07/18/19 17:07 36 C L 79 16 148/83 H Pulse Ox 07/19/19 15:50 95 07/19/19 15:40 95 07/19/19 15:30 99 07/19/19 13:39 96 07/19/19 07:45 92 07/19/19 05:54 95 07/19/19 03:10 94 07/18/19 23:32 93 07/18/19 23:31 89 L 07/18/19 19:44 92 07/18/19 18:42 90 07/18/19 18:18 95 07/18/19 17:40 98 07/18/19 17:25 94 07/18/19 17:15 99 07/18/19 17:07 97 Pain Intensity Right Abdomen: Pain Intensity: 2 Transfer of Care Handoff Completed per policy Notes Mental Status: alert / awake / arousable and participated in evaluation Patient Amnestic to Procedure: Yes Nausea / Vomiting: adequately controlled Pain: adequately controlled Airway Patency, RR, SpO2: stable & adequate BP & HR: stable & adequate Hydration State: stable & adequate Anesthetic Complications: no major complications apparent and Pt Satisfied with anesthetic care
[2019-07-20] MEDS: SODIUM CHLORIDE 0.9% 1000ML 1,000 ML IV SCH ×2 (06:25→14:12)
[2019-07-20 06:45] LABS: Basophils # (auto) 0.02 K/uL (0-0.2); Basophils % (auto) 0.3 %; Eosinophils # (auto) 0.14 K/uL (0-0.5); Eosinophils % (auto) 2.4 %; Hematocrit (blood only) 39.8 % (37-47); Hemoglobin 12.6 g/dL (12.0-16.0); Lymphocytes % (auto) 37.8 %; Mean Corpuscular Hemoglobin 30.1 pg (25-34); Mean Corpuscular Hgb Conc 31.7 g/dL (32-36); Mean Corpuscular Volume 95.2 fL (80-100); Mean Platelet Volume 12.5 fL (7.4-10.4); Monocytes # (auto) 0.51 K/uL (0.11-0.59); Monocytes % (auto) 8.8 %; Neutrophils # (auto) 2.95 K/uL (1.4-6.5); Neutrophils % (auto) 50.7 %; Platelet Count 166 K/uL (130-400); RDW Coefficient of Variation 13.4 % (11.5-14.5); RDW Standard Deviation 46.7 fL (36.4-46.3); Red Blood Count 4.18 M/uL (4.2-5.4); White Blood Count 5.82 K/uL (4.8-10.8)
[2019-07-20 07:22] LABS: BUN Creatinine Ratio 9.8 (10-20); Calcium 7.9 mg/dl (8.5-10.1); Creatinine Clr Calc Pharmacy 85.6 ml/min; Est GFR (African American) 84.6; Potassium 3.7 mmol/L (3.5-5.1)
[2019-07-20 07:26] LABS: Bilirubin,Total 0.8 mg/dl (0.2-1); Globulin 2.9 gm/dl (2.5-4.0); Total Protein 5.9 gm/dl (6.4-8.2)
--- NOTE | 2019-07-20 07:57 | Surgery Progress Note ---
Date of Service July 20, 2019 Assessment & Plan (1) Status post laparoscopic cholecystectomy: Patient is status post laparoscopic cholecystectomy with abnormal cholangiogram She underwent ERCP with finding of a common bile duct stone which was removed with sphincterotomy No stent placement She is doing well this morning but is fatigued but her pain appears to be under control Continue IV antibiotics and gentle IV fluid till this afternoon-would plan discharge tomorrow and remove drain prior to discharge Results & Data Vital Signs (Past 12 Hours) Vital Signs Temp Pulse Pulse Resp BP Pulse Ox 07/20/19 07:06 36.6 C 54 L 18 158/98 H 93 07/20/19 02:16 36.6 C 56 L 18 153/87 H 93 07/19/19 23:05 36.7 C 53 L 14 145/81 H 93 PG Care Time/CCT Total # of Minutes Spent Total Time Spent with Patient: Total time spent is greater than 50% in coordination of care (as documented) at patient's floor/unit and/or counseling patient: Coding Level of Care Code None Diagnoses Status post laparoscopic cholecystectomy Z90.49
--- NOTE | 2019-07-20 08:13 | Gastroenterology Progress Note ---
Date of Service July 20, 2019 Assessment & Plan (1) Dilated cbd, acquired: Pt is a 53 y/o female s/p lap sterling symptomatic cholecystitis, and s/p ERCP yesterday for choledocholithiasis with successful stone extraction. This AM has a slight bump in transaminases which is expected to be transient, WBC, tbili, ALP, HGB WNL. Pt much improved in her abd discomfort. Abd is soft, she's HD stable and afebrile. Tolerated regular breakfast and doing well. - Continue diet as tolerated - Post-op care as per surgery team - No NSAIDs for 5 days - GI will sign off. Please call with questions Thank you for allowing us to participate in the care of this patient. Please call with any acute changes, questions or concerns. Please see addendum below with additional recommendation from my supervising physician. Admission and Anticipated Discharge Date Admission Date: July 18, 2019 Supervising Physician Co-Signing Physician Notes I have discussed the patient's management with the advanced practitioner. Please refer to the nurse practitioner's note for the documented findings and plan of care. Tolerating diet. Labs with slight AST/ALT elevation which is expected after stone extraction. Recall Gi if needed. Subjective Pt seen and examined. Underwent ERCP yesterday demonstrating choledocholithiasi s which was extracted. Tolerated regular breakfast this AM. Slight bump in transaminases, normal tbili, ALP, no leukocytosis, HGB stable. Abd pain is much improved. Denies n/v, bloating/gas, fever, chills, CP, dyspnea, dysuria. No stool overnight. Review of Systems Review of Systems: All systems reviewed & are unremarkable except as noted in HPI & below Physical Exam Constitutional: WD/WN, vitals as above no acute distress Respiratory: normal respiratory effort, lungs clear to auscultation Cardiovascular: Rate/Rhythm: regular rate and regular rhythm Gastrointestinal (Abdomen): Inspection/Auscultation: abdomen normal to inspection and normal bowel sounds; abdomen not distended Percussion/Palpation: abdomen soft TANA drain in place; small amt of mostly clear/serosanguinous drainage; no bile. Surgical incisions covered in clean dry dressings Psychiatric: A+Ox3, euthymic affect Results & Data ([facility]) Vital Signs (Past 12 Hours) Vital Signs Temp Pulse Pulse Resp BP Pulse Ox 07/20/19 07:06 36.6 C 54 L 18 158/98 H 93 07/20/19 02:16 36.6 C 56 L 18 153/87 H 93 07/19/19 23:05 36.7 C 53 L 14 145/81 H 93 Laboratory Results 07/20/19 07/20/19 Range/Units 06:10 06:10 WBC 5.82 (4.8-10.8) K/uL RBC 4.18 L (4.2-5.4) M/uL Hgb 12.6 (12.0-16.0) g/dL Hct 39.8 (37-47) % MCV 95.2 (80-100) fL MCH 30.1 (25-34) pg MCHC 31.7 L (32-36) g/dL RDW Std Deviation 46.7 H (36.4-46.3) fL RDW Coeff of Sandi 13.4 (11.5-14.5) % Plt Count 166 (130-400) K/uL MPV 12.5 H (7.4-10.4) fL Immature Gran % (Auto) 0.0 % Neut % (Auto) 50.7 % Lymph % (Auto) 37.8 % Lea % (Auto) 8.8 % Eos % (Auto) 2.4 % Baso % (Auto) 0.3 % Immature Gran # (Auto) 0.00 (0.00-0.02) K/uL Neut # (Auto) 2.95 (1.4-6.5) K/uL Lymph # (Auto) 2.20 (1.2-3.4) K/uL Lea # (Auto) 0.51 (0.11-0.59) K/uL Eos # (Auto) 0.14 (0-0.5) K/uL Baso # (Auto) 0.02 (0-0.2) K/uL Sodium 143 (136-145) mmol/L Potassium 3.7 D (3.5-5.1) mmol/L Chloride 113 H (98-107) mmol/L Carbon Dioxide 26 (21-32) mmol/L Anion Gap 4.0 (3-11) BUN 9 (7-18) mg/dl Creatinine 0.89 (0.6-1.2) mg/dl Est Cr Clr Drug Dosing 85.6 ml/min Est GFR ( Amer) 84.6 Est GFR (Non-Af Amer) 73.0 BUN/Creatinine Ratio 9.8 L (10-20) Glucose 91 (70-99) mg/dl Calcium 7.9 L (8.5-10.1) mg/dl Total Bilirubin 0.8 (0.2-1) mg/dl AST 102 H (15-37) U/L ALT 97 H (12-78) U/L Alkaline Phosphatase 93 (45-117) U/L Total Protein 5.9 L (6.4-8.2) gm/dl Albumin 3.0 L (3.4-5.0) gm/dl Globulin 2.9 (2.5-4.0) gm/dl Albumin/Globulin Ratio 1.0 (0.9-2)
[2019-07-20] MEDS: ESCITALOPRAM OXALATE 20 MG TAB PO SCH (08:46)
[2019-07-20] MEDS: BuPROPion XL 150 MG TABCR PO SCH (08:46)
[2019-07-20] MEDS: BusPIRone 15 MG TAB PO SCH (08:46)
--- NOTE | 2019-07-20 11:33 | Hospitalist Progress Note ---
Date of Service July 20, 2019 Assessment & Plan (1) Choledocholithiasis: This patient is a 53-year-old female with history of obesity, chronic sinusitis and rhinitis,, borderline hypertension, and depression, who presents to the ER with acute calculus cholecystitis. Blood pressures are likely elevated secondary to pain in the setting of borderline hypertension previously. LFTs normal on admission but were early cholecystitis. POD #2 s/p lab sterling by Dr. Mesa with abnormal cholangiogram prompting GI consultation for possible choledocholithiasis. POD #1 s/p ERCP with biliary sphincterotomy and balloon extraction by Dr. Shine following. Pain well controlled. * Per primary service. LFTs -- AST 102, ALT 97, alk phos 93, tbili 0.8. Trend LFTs in AM * PT/OT/pain management/DVT prophylaxis per primary service * Continue IV mefoxin per surgery * Pain control with morphine, zofran for nausea * H/h stable at 12.6/39.8 -- likely combination of dilution from IVF as well as acute blood loss (2) Acute calculous cholecystitis: * Per primary service * POD #2 S/P lab sterling with Dr. Mesa on 07/17. EBL 10mL. Pre-op h/h 14.4/44.0. Patient without flow into duodenum on cholangiogram in addition to significant bilious output from cystic duct. AST elevated at 54 ERCP as above for choledocholithiasis (3) Biliary colic: * As above (4) Hypertension, benign essential, goal below 140/90: * Blood pressure elevated here on admission likely secondary to pain into the 180s over 90s systolic, however has improved with IV morphine * Patient reports she frequently is in the 140s over 90s when she checks her blood pressure at work. * She does have trace pitting edema lower extremities and history of varicose veins * She is completely asymptomatic from her blood pressure at this time-no headache or chest pain or neurological deficits, no shortness of breath * In the meantime, would add hydralazine 10 mg IV every 8 hours as needed systolic blood pressure greater than 180 * BP continued to be elevated 160s/90s-100 following procedures, asymptomatic, without pain. * Initiated HCTZ 25mg daily * BP improved, currently 138/86 * BMP in AM -- may need PO potassium supplementation pending labs in AM (5) Chronic sinusitis: * Chronic issue, follows with dairy nutrition specialist * No current acute issues (6) Obesity: * BMI 35.9 * She is working on changing her diet and weight loss (7) Osteopenia: * Noted in the chart * Not on calcium or vitamin D that I can see * Follow-up with PCP (8) Depression: * Stable * Continue home bupropion, buspirone, and Lexapro when not NPO (9) Allergic rhinitis: * As above, not currently on any medications for this (10) Hepatomegaly: * Noted hepatomegaly on MRCP --> See above. Also with possibility d/t fatty liver. BMI 35.9 * Follow-up with PCP as an outpatient * Recommended weight loss (11) DVT prophylaxis: * SCDs * Discussed with primary service --> initiated Heparin SC BID Thank you for allowing hospitalist service to participate in the care of Ms. Ace. Hospitalist service follow peripherally with chat checks but will sign off at this time. Please call with any questions/concerns. Admission and Anticipated Discharge Date Admission Date: July 18, 2019 Subjective Patient feeling well. Minimal discomfort controlled with tylenol as needed. No BM yet but has been passing gas. Eating and drinking without any issues. Voiding without difficulty. States GI and surgery were around this morning and hopeful for drain removal tomorrow and possible discharge. Denies fever, chills, chest pain, shortness of breath, dysuria, calf tenderness at this time. Discussed elevated BPs and patient endorses LE edema as outpatient. Agreeable to starting HCTZ and monitoring labs in AM to see if she may require potassium supplementation as this is a common side effect. Review of Systems Review of Systems: All systems reviewed & are unremarkable except as noted in HPI & below Physical Exam Constitutional: WD/WN, vitals as above + obese; no acute distress Eyes: PERRL, conjunctivae normal, anicteric sclerae Neck: trachea midline, no thyromegaly Respiratory: normal respiratory effort, lungs clear to auscultation Cardiovascular: Rate/Rhythm: regular rhythm and + bradycardic Heart Sounds: normal S1 and normal S2; no gallop, no murmur and no cardiac rub Extremities: + edema (trace) Gastrointestinal (Abdomen): Inspection/Auscultation: normal bowel sounds; abdomen not distended Percussion/Palpation: abdomen soft; no guarding and abdomen not rigid surgical incisions covered. c/d/i TANA drain with minimal clear/serosanguineous drainage Musculoskeletal: no cyanosis or clubbing, extremities motor strength 5/5 Skin: no rashes, warm and dry Neurologic: patellar DTR's 2+ bilat, sensation intact Psychiatric: A+Ox3, euthymic affect Lymphatic: no cervical or axillary lymphadenopathy Results & Data Results & Data ([facility]) Vital Signs (Past 12 Hours) Vital Signs Temp Pulse Pulse Resp BP Pulse Ox 07/20/19 07:06 36.6 C 54 L 18 158/98 H 93 07/20/19 02:16 36.6 C 56 L 18 153/87 H 93 Laboratory Results 07/20/19 07/20/19 Range/Units 06:10 06:10 WBC 5.82 (4.8-10.8) K/uL RBC 4.18 L (4.2-5.4) M/uL Hgb 12.6 (12.0-16.0) g/dL Hct 39.8 (37-47) % MCV 95.2 (80-100) fL MCH 30.1 (25-34) pg MCHC 31.7 L (32-36) g/dL RDW Std Deviation 46.7 H (36.4-46.3) fL RDW Coeff of Sandi 13.4 (11.5-14.5) % Plt Count 166 (130-400) K/uL MPV 12.5 H (7.4-10.4) fL Immature Gran % (Auto) 0.0 % Neut % (Auto) 50.7 % Lymph % (Auto) 37.8 % Rains % (Auto) 8.8 % Eos % (Auto) 2.4 % Baso % (Auto) 0.3 % Immature Gran # (Auto) 0.00 (0.00-0.02) K/uL Neut # (Auto) 2.95 (1.4-6.5) K/uL Lymph # (Auto) 2.20 (1.2-3.4) K/uL Rains # (Auto) 0.51 (0.11-0.59) K/uL Eos # (Auto) 0.14 (0-0.5) K/uL Baso # (Auto) 0.02 (0-0.2) K/uL Sodium 143 (136-145) mmol/L Potassium 3.7 D (3.5-5.1) mmol/L Chloride 113 H (98-107) mmol/L Carbon Dioxide 26 (21-32) mmol/L Anion Gap 4.0 (3-11) BUN 9 (7-18) mg/dl Creatinine 0.89 (0.6-1.2) mg/dl Est Cr Clr Drug Dosing 85.6 ml/min Est GFR ( Amer) 84.6 Est GFR (Non-Af Amer) 73.0 BUN/Creatinine Ratio 9.8 L (10-20) Glucose 91 (70-99) mg/dl Calcium 7.9 L (8.5-10.1) mg/dl Total Bilirubin 0.8 (0.2-1) mg/dl AST 102 H (15-37) U/L ALT 97 H (12-78) U/L Alkaline Phosphatase 93 (45-117) U/L Total Protein 5.9 L (6.4-8.2) gm/dl Albumin 3.0 L (3.4-5.0) gm/dl Globulin 2.9 (2.5-4.0) gm/dl Albumin/Globulin Ratio 1.0 (0.9-2) PG Care Time/CCT Total # of Minutes Spent Total Time Spent with Patient: Total time spent is greater than 50% in coordination of care (as documented) at patient's floor/unit and/or counseling patient: Coding Level of Care Code 31920 Subseq Hosp Care Lvl 2 Diagnoses Choledocholithiasis K80.50 Acute calculous cholecystitis K80.00 Biliary colic K80.50 Hypertension, benign essential, goal below 140/90 I10 Chronic sinusitis J32.9 Obesity E66.9 Osteopenia M85.80 Depression F32.9 Allergic rhinitis J30.9 Hepatomegaly R16.0 DVT prophylaxis Z29.9
[2019-07-20] MEDS: hydroCHLOROthiazide 25 MG TAB PO SCH (13:15)
[2019-07-20] MEDS: HEPARIN SOD 5,000 UNIT/0.5 ML VIAL SQ SCH (20:26)
[2019-07-21] MEDS: BuPROPion XL 150 MG TABCR PO SCH (08:43)
[2019-07-21] MEDS: hydroCHLOROthiazide 25 MG TAB PO SCH (08:43)
[2019-07-21] MEDS: ESCITALOPRAM OXALATE 20 MG TAB PO SCH (08:44)
[2019-07-21] MEDS: HEPARIN SOD 5,000 UNIT/0.5 ML VIAL SQ SCH (08:44)
[2019-07-21] MEDS: BusPIRone 15 MG TAB PO SCH (08:44)
[2019-07-21 08:57] LABS: Albumin Level 3.3 gm/dl (3.4-5.0); BUN Creatinine Ratio 9.7 (10-20); Calcium 8.8 mg/dl (8.5-10.1); Creatinine Clr Calc Pharmacy 77.8 ml/min; Est GFR (African American) 75.3; Est GFR (Non-African American) 64.9; Potassium 3.9 mmol/L (3.5-5.1)
[2019-07-21 09:00] LABS: Bilirubin,Total 0.5 mg/dl (0.2-1); Globulin 3.3 gm/dl (2.5-4.0); Total Protein 6.6 gm/dl (6.4-8.2)
[2019-07-21] MEDS ORDERED: hydroCHLOROthiazide 25 MG TAB PO SCH (09:00)
--- NOTE | 2019-07-21 10:51 | Surgery Progress Note ---
Date of Service doing fine, no nausea, no vomiting, mild abdominal pain, TANA pulled by nurse, July 21, 2019 Assessment & Plan (1) Choledocholithiasis: doing fine, pt wants to go home, the post-op care instruction was given, Supervising Physician Co-Signing Physician Notes I have discussed the patient's management with the advanced practitioner. Please refer to the nurse practitioner's note for the documented findings and plan of care. Tolerating diet. Labs with slight AST/ALT elevation which is expected after stone extraction. Recall Gi if needed. Physical Exam Constitutional: WD/WN, vitals as above well developed and well nourished Eyes: PERRL, conjunctivae normal, anicteric sclerae ENMT: external ear and nose normal, oropharynx normal Neck: trachea midline, no thyromegaly Respiratory: normal respiratory effort, lungs clear to auscultation Cardiovascular: RRR, no murmur, no edema Gastrointestinal (Abdomen): Percussion/Palpation: abdomen soft NT, ND all incisions intact, no redness, Musculoskeletal: no cyanosis or clubbing, extremities motor strength 5/5 Skin: no rashes, warm and dry Neurologic: awake Psychiatric: Orientation: alert and oriented x 3 Results & Data Vital Signs (Past 12 Hours) Vital Signs Temp Pulse Resp BP BP Pulse Ox 07/21/19 07:41 36.6 C 48 L 16 157/96 H 93 07/20/19 23:05 36.8 C 52 L 16 137/87 93 Laboratory Results Abnormal lab results 07/21/19 Range/Units 08:08 BUN/Creatinine Ratio 9.7 L (10-20) AST 111 H (15-37) U/L ALT 222 H (12-78) U/L Alkaline Phosphatase 145 H (45-117) U/L Albumin 3.3 L (3.4-5.0) gm/dl
--- NOTE | 2019-07-24 08:08 | Discharge Summary ---
Date of Service July 24, 2019 Principal Diagnosis acute cholecystitis Discharge Exam awake/alert Gastrointestinal (Abdomen) Inspection/Auscultation: + abdominal surgical incision (c/d/i); abdomen not di stended Percussion/Palpation: abdomen soft Discharge Data Allergies Allergy/AdvReac Type Severity Reaction Status Date / Time No Known Drug Allergies Allergy Verified 07/18/19 08:09 Consultations 07/18/19 10:38 Consult General Surgery Stat 07/18/19 11:42 Consult Hospitalist Routine 07/18/19 16:28 Consult Gastroenterology Routine 07/18/19 17:37 Consult Gastroenterology Stat Consult Hospitalist Routine Procedures Performed Operation Date: 07/18/19 10:10 Actual Procedures p Laparoscopic Cholecystectomy with Cholangiogram - Jonathan Mesa MD, FACS Operation Date: 07/19/19 13:00 Actual Procedures p Endoscopic Retrograde Cholangiopancreatogram - Jenny Lowery MD Ordered Studies 07/18/19 07:44 US abdomen limited Stat 07/18/19 11:45 MR MRCP Urgent 07/18/19 13:50 [place] cholangiogram OR Routine 07/19/19 13:00 FL ERCP biliary ductal Routine Hospital Course (1) Acute calculous cholecystitis: This is a 53y F who presented to the [facility] ED on 07/18/19 with complaints of epigastric pain and nausea. Her pain progressively worsened prompting her to come to the ED for further evaluation. Workup revealed findings equivocal for acute cholecystitis with + cholelithiasis and probable stone in the gallbladder neck. Surgery admitted the patient with a medicine consultation to follow along throughout patient's hospitalization. On 07/17 the patient was taken to the OR for a laparoscopic cholecystectomy. An intraoperative cholangiogram was performed that showed no flow of contrast into the small bowel. GI was consulted post operatively and performed an ERCP on 07/18 where choledocholithiasis was found and removed. Post operatively the patient's diet was advanced from clear liquids to regular diet as tolerated. Pain was controlled with prn pain medications. On 07/20 the patient was feeling well and was deemed stable for discharge to home. Her surgical TANA drain was removed prior to discharge. She was instructed to follow up in surgery clinic within 1-2 weeks for a post op check. Total Time Total Time Spent Total Time Spent (In Minutes): 10 Discharge Plan Discharge Items Patient Disposition: Home - Self-Care Reason For Visit: ABDOMINAL PAIN Discharge Diagnosis: laparoscopic cholecystectomy Activity: Per Instructions section Activity Comment: light activity for 4 weeks Lifting: No more than 10 pounds Bathing Comment: may shower, no soaking in tubs Sexual Activity: When tolerated Exercise/Sports: Wait until after follow-up appointment Exercise Comment: light activity for 4 weeks Driving/Machine Use: Resume 3 days after discharge Non-emergency contact: Surgeon Call non-emergency contact if: you have any medication questions, your symptoms worsen, your pain is not controlled, your pain is worsening, your pain is unusual for you, your pain is concerning for you, you have a fever, your temperature is above 101.5, your wound has increased redness, your wound has increased drainage and your wound pain has increased Follow-up/Referrals: Jonathan Mesa MD, FACS [Physician] - (Please call to schedule follow up in clinic within 2 weeks) Cecilia Villeda MD [Primary Care Provider] - Diet: Regular Addtl Attending Provider Instructions: SPECIAL CARE INSTRUCTIONS: * Cover incisions and change daily for comfort/drainage. * May use ibuprofen for pain as tolerated. * Expect some swelling and bruising. Call your doctor if: * Temperature above 101 degrees * Pain not relieved by pain medicine ordered * There is increased drainage or redness from any incision * You have any unanswered questions or concerns [phone]. FOLLOW UP VISIT: If not already scheduled, please call the office for a follow-up visit. OFFICE PHONE NUMBER: Dr. Mesa Office for next week- check up Pending Studies at Discharge: Yes Studies:: surgical pathology Stand-Alone Forms: [facility] [employer], Smoking Cessation Medications and DC Order Prescriptions: New hydrocodone-acetaminophen [[place]] 5-325 mg tablet 1 - 2 tab PO Q6H PRN (Reason: pain) Qty: 30 RF: 0 Continued aspirin 81 mg tablet,delayed release (DR/EC) 81 mg PO DAILY Qty: 30 RF: 3 bupropion HCl 150 mg tablet extended release 24 hr 150 mg PO QAM Qty: 90 RF: 0 buspirone 15 mg Tablet 15 mg PO QAM RF: 0 escitalopram oxalate [Lexapro] 20 mg Tablet 20 mg PO QAM RF: 0 Discharge Orders: Discharge Order (Routine); Ordered 07/21/19 Ordered By: Sanford Duncan/Other Patient Handouts: Having Laparoscopic Cholecystectomy Admission Data Admit Date/Time: 07/18/19 12:28 Attending Provider: Jonathan Mesa Admit Provider: Jonathan Mesa Primary Care Provider: Cecilia Villeda Other Providers: Jonathan Mesa ; Karina Elmore ; Jenny Lowery ; Alfredo Cuevas ; Abhi Bello Other Interventions: Discharge Summary Assessment (RN) Last Done: 07/21/19 11:07 DC Date/Time DO NOT enter until pt leaves facility: 07/21/19 12:15 Coding Level of Care Code D/C Day Management <30 mins Diagnoses Acute calculous cholecystitis K80.00
== END 2019-07-21 12:15 | disposition home or self-care (01) | DRG 419 ==
LOC: ED 07:26 → 3N 12:28